=== PATIENT | female | born 1940 | race Caucasian/White ===

== ENCOUNTER 2024-12-24 01:15 | Emergency (ER) | payer MEDICARE, MEDICAID, SELFPAY ==
--- NOTE | 2024-12-24 | ECG_ITS ---
Test Reason : FALL Blood Pressure : */* mmHG Vent. Rate : 65 BPM Atrial Rate : 65 BPM P-R Int : 180 ms QRS Dur : 118 ms QT Int : 460 ms P-R-T Axes : 102 -18 1 degrees QTcB Int : 478 ms Sinus rhythm with Premature supraventricular complexes Left ventricular hypertrophy with QRS widening ( R in aVL , Proctor product ) Possible Lateral infarct , age undetermined T wave abnormality, consider anterior ischemia Abnormal ECG No previous ECGs available Referred By: Generic ED Physician Electronically Signed By: Quinn Bang
--- NOTE | ~2024-12-24 | CT_ITS ---
CLINICAL HISTORY: follow-up on questionable bleed CT head without contrast Comparison: CT/SR - CT HEAD/BRAIN WO IV CON - 12/24/24 06:33 EDT Findings: No acute hemorrhage. Basal ganglia calcifications. No extra-axial fluid collection. No hydrocephalus, mass-effect or herniation. Christianson-white differentiation is maintained. There is patchy hypoattenuation of the periventricular and deep white matter, which is most likely the sequela of moderate chronic small vessel ischemic disease and is similar to the prior study. 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 No acute orbital pathology. Right frontal and temporal scalp hematoma measuring up to 6 mm in thickness. No fracture. The visualized paranasal sinuses are predominantly clear. The mastoid air cells are clear. Impression: No acute intracranial findings. This document has been electronically signed by: Angelique Doyle MD on 12/24/2024 13:19:16
--- NOTE | ~2024-12-24 | CT_ITS ---
CLINICAL HISTORY: fall --- Additional Notes or Special Instructions: 0445 - tried to do CT scans, pt woke up as soon as we moved her on to the CT table. pt moving, sent back to her room. RN and MD notified. jat CT head without contrast Comparison: None Findings: No evidence of acute territorial infarct. There is patchy low density in the periventricular and subcortical white matter. Diffuse volume loss is noted. No hydrocephalus. No intraparenchymal hemorrhage, mass effect, mass lesion or midline shift. Questioned tiny focus of subarachnoid hemorrhage, axial 56-59 along the right posterior frontal region. No calvarial fracture. Right frontal scalp hematoma. Paranasal sinuses and mastoid air cells are clear. Impression: Questioned tiny focus of subarachnoid hemorrhage, axial 56-59 along the right posterior frontal region. This may well be artifactual. Short interval follow-up head CT should be considered. Right frontal scalp hematoma. Otherwise chronic changes. This document has been electronically signed by: Samuel Rocha MD on 12/24/2024 08:19:48
--- NOTE | ~2024-12-24 | CT_ITS ---
CLINICAL HISTORY: fall CT cervical spine without contrast Comparison: None provided Findings: Normal vertebral body alignment. Abnormal destructive process within the posterior elements of C7, axial 178. No acute fractures or dislocations. No acute findings on limited view of the intracranial contents. No cervical fluid collections or masses. No consolidation or effusion at the lung apices. IMPRESSION: No acute fracture or acute malalignment. Destructive somewhat expansile process within the posterior elements of C7. Correlation with any prior imaging is recommended. The appearance is somewhat nonspecific but consideration for prior or chronic osteomyelitis, chronic aneurysmal bone cyst or less likely malignancy This document has been electronically signed by: Samuel Rocha MD on 12/24/2024 08:15:14
[2024-12-24 01:22] VITALS: BP 116/70; BP 129/73; PULSE 62; PULSE 64; RESP 16; TEMP 36.4; O2SAT 96; O2SAT 97; BMI 26.0
--- NOTE | 2024-12-24 01:29 | PC.NURSE ---
goldie from [place] [facility], unwitnessed fall, knee gave out per pt and she tripped, usually fully ambulatory, hit head on floor, hematoma present on R side of forehead. pt denies pain unless touching her head, takes aspirin. full code, per [facility]. pt denies headache, dizziness or lightheadedness.
--- OUTSIDE RECORDS SUMMARY | 2024-12-24 01:42 | XMS_ITS | Encounter Summary ---
Author Organization [facility] Address [address] [place] [address] Care Team Providers Care Oven Tender Name Role Phone Yusuf Fox MD Primary Care Provider Encounter Details Date Type Department Care Team (Late st Contact Info) Description 01/17/2024 Lab Requisition [facility] - Main Lab [address] [facility] [place] [address] Steven Mcelroy MD [address] [place] [address] [address] [facility] [id number] Hypothyroidism, unspecified Social History Tobacco Use Types Packs/Day Years Used Date Smoking Tobacco: Former Cigarettes Q uit: 03/14/1998 Smokeless Tobacco: Never Comments Unknown Sex and Gender Information Value Date Recorded Sex Assigned at Not on file Legal Sex Female 1:54 AM EST Gender Identity Not on file Sexual Orientation Not on file documented as of this encounter Plan of Treatment Not on file documented as of this encounter Procedures Procedure Name Priority Date/Time Associated Diagnosis Comments TRAVEL PHLEBOTOMY FEE Routine 01/18/2024 6:09 AM EST Hypothyroidism, unspecified THYROID STIMULATING HORMONE Routine 01/18/2024 6:09 AM EST Hypothyroidism, unspecified THYROXINE FREE Routine 01/18/2024 6:09 AM EST Hypothyroidism, unspecified documented in this encounter Results * Travel phlebotomy fee (01/18/2024 6:09 AM EST) [facility] TRAVEL PHLEBOTOMY FEE Completed 01/18/2024 11:01 AM EST [facility] Blood Venous blood specimen / Unknown Venipuncture / Unknown 01/18/2024 6:09 AM EST 01/18/2024 10:50 AM EST Steven Mcelroy MD LAB BLOOD ORDERABLES Final Resul t Performing Organization Address City/[facility]/ZIP Co de Phone Number [facility] [address] [place] [address], [place] [phone] * Thyroxine free (01/18/2024 6:09 AM EST) Free T4 1.37 0.70 - 1.80 ng/dL LAB CHEMISTRY METHOD 01/18/2024 11:52 AM EST [facility] Blood Venous blood specimen / Unknown Venipuncture / Unknown 01/18/2024 6:09 AM EST 01/18/2024 10:50 AM EST Steven Mcelroy MD LAB BLOOD ORDERABLES Final Resul t Performing Organization Address [facility]/ZIP Co de Phone Number [facility] [address] [place] [address], [place] [phone] * (ABNORMAL) Thyroid stimulating hormone (01/18/2024 6:09 AM EST) TSH 0.17(L) 0.40 - 4.00 mcIU/mL LAB CHEMISTRY METHOD 01/18/2024 11:53 AM EST [facility] Blood Venous blood specimen / Unknown Venipuncture / Unknown 01/18/2024 6:09 AM EST 01/18/2024 10:50 AM EST us Steven Mcelroy MD LAB BLOOD ORDERABLES Final Resul t Performing Organization Address City/[facility]/ZIP Co de Phone Number [facility] [address] [place] [address], [place] [phone] documented in this encounter Visit Diagnoses Diagnosis Hypothyroidism, unspecified documented in this encounter Care Teams Oven Tender Relationship Specialty Start Date End Date Yusfu Fox MD [address] [place] [address] PCP - General Internal Medicine 10/26/21 documented as of this encounter
--- OUTSIDE RECORDS SUMMARY | 2024-12-24 01:42 | XMS_ITS | Data Portability ---
Author Organization [facility] [employer] [facility], Main Office Address [address] , [address] [place] [address] Care Team Providers Care Vice President Of Manufacturing Name Role Phone GODFREY SHAH - 3RD FLOOR OTHER Assessment No assessment recorded. Plan of Treatment Reminders Order Date Submit Date Provider Last Modified By Organization Details Last Modified Time Details Appointments None record ed. Lab None record ed. Referral None record ed. Procedures None record ed. Surgeries None record ed. Imaging None record ed. Medication Orders None record ed. Patient TargetsNo targets recorded. Patient InstructionsNo instructions recorded. Reason for Referral None Reported. Problems Name Problem SNOMED Code Status Onset Date Resolution Date Notes Provider Name and Address Organization Details Recorded Time Septic shock 73303795 Active 2021 EFRAIN AGUIRRE PA-C [address] , [address], [place], [address], [facility] [employer] 2 12:15:21 Bacterial pneumonia 00841061 Active 2021 EFRAIN AGUIRRE PA-C [address] , [address], [place], [address], [facility] [employer] 2 12:15:29 Primary malignant neoplasm of female breast 85016177 Active 2021 with mets, s/p mastectom y, chemo/XRT and palliativ e XRT EFRAIN AGUIRRE PA-C [address] , [address], [place], [address], [facility] [employer] 2 12:16:33 Acquired hypothyro idism 136011551 Active 2021 s/p thyroidec amee EFRAIN AGUIRRE PA-C [address], [place], [address], [facility] [employer] 2 12:17:05 Chronic kidney disease stage 4 856657425 Active 2021 MATHEW GARCIAC [address], [address], [place], [address], [facility] 2 12:17:20 Vitamin D deficienc y 26009511 Active 2021 EVAN GARCIA-C [address], [address], [place], [address], [facility] 2 12:17:32 Folic acid deficienc y 291579350 Active 2021 EVAN GARCIA-C [address], [address], [place], [address], [facility] 2 12:17:39 Cobalamin deficienc y 087104494 Active 2021 MATHEW GARCIAC [address], [address], [place], [address], [facility] 2 12:18:04 Bilateral pleural effusion 494314782 Active 2021 transudat crystal EVAN GARCIA-C [address], [address], [place], [address], [facility] 2 12:18:28 Urinary incontine nce 185001639 Active 2021 MATHWE GARCIAC [address], [address], [place], [address], [facility] 2 12:18:38 Essential hypertens ion 25476573 Active 2021 EVAN GARCIA-C [address], [address], [place], [address], [facility] 2 12:18:46 Recurrent falls 193306834 Active 2021 EVAN GARCIA-C [address], [address], [place], [address], [facility] 2 12:18:54 Vascular dementia 971761774 Active 2021 EFRAIN AGUIRRE, PA-C [address], [address], [place], [address], [facility] 2 12:19:03 Cardiomyo chase 07454266 Active 2021 ? 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 EFRAIN AGUIRRELAMONTE [address], [address], [place], [address], [facility] 2 12:20:00 Incontine nce of feces 24939263 Active 2021 EFRAIN AGUIRRE LAMONTE [address], [place], [address], [facility] 2 12:20:12 Liver enzymes level above reference range 470138038 Active 2021 EFRAIN LAMONTE AGUIRRE [address], [address], [place], [address], [facility] 2 12:20:45 Chronic anemia 970638870 Active 2021 EFRAIN AGUIRREMATHEWC [address], [place], [address], [facility] 2 12:20:53 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 322236063003 09 Active 2021 EFRAIN LAMONTE AGUIRRE [address], [place], [address], [facility] 2 12:21:21 Edema of left lower leg 476070038 Active 2021 EFRAIN AGUIRREEVAN-C [address], [address], [place], [address], [facility] 2 12:21:33 Dyslipide kenzie 509721660 Active 2021 EFRAINEVAN STOVER-C [address], [place], [address], [facility] 2 12:21:41 Prolonged QT interval 284901085 Active 2021 EFRAIN AGUIRRE PA-C [address] [facility], [facility] [address], [place], [address], [facility] 2 12:22:27 Humoral hypercalc emia of malignanc y 49939922 Active 2021 EFRAIN AGUIRRE PA-C [address] [facility], [facility] [address], [place], [address], [facility] 2 12:22:48 Mixed anxiety and depressiv e disorder 771868462 Active 2023 Milla Rios MD [address] [place] [address], [facility] [address], [place], [address], [facility] 4 19:08:52 Hypothyro idism 87299378 Active 2023 Milla Rios MD [address] [place] [address], [facility] [address], [place], [address], [facility] 4 16:52:20 Problem Notes None recorded. Medical Equipment None Reported. Allergies No known drug allergies Medications Not known to be on any medication Vitals Date Recorded Body height Body mass index (BMI) Body weight Heart rate Respiratory rate Body temperature Oxygen saturation Oxygen saturation in Arterial blood by Pulse oximetry Systolic And Diastolic Provider Name and Address Organization Details Last Updated DateTime 5 160.66 cm 23.4 kg/m2 42836.7 9 g 80 /min 18 /min 97.9 [degF] 96 % 96 % 132/82 mm[Hg] Michelle Nino NP [address] [facility], [facility] [address], [place], [address], [facility] 5 12:37:32 Date Recorded Body height Body mass index (BMI) Body weight Heart rate Respiratory rate Body temperature Oxygen saturation Oxygen saturation in Arterial blood by Pulse oximetry Systolic And Diastolic Provider Name and Address Organization Details Last Updated DateTime 5 160.66 cm 23.4 kg/m2 18219.7 9 g 70 /min 18 /min 97.9 [degF] 96 % 96 % 129/75 mm[Hg] Michelle Nino NP [address] [facility], [facility] [address], [place], [address], [facility] 5 13:58:50 Date Recorded Body height Heart rate Respiratory rate Body temperature Oxygen saturation Oxygen saturation in Arterial blood by Pulse oximetry Systolic And Diastolic Provider Name and Address Organization Details Last Updated DateTime 5 160.66 cm 67 /min 16 /min 97.5 [degF] 96 % 96 % 132/62 mm[Hg] Michelle Nino NP [address] [facility], [address], [place], [address], [facility] 5 17:31:12 Date Recorded Body height Body weight Heart rate Respiratory rate Body temperature Oxygen saturation Oxygen saturation in Arterial blood by Pulse oximetry Systolic And Diastolic Provider Name and Address Organization Details Last Updated DateTime 5 160.66 cm 38748.1 9 g 67 /min 16 /min 97.5 [degF] 96 % 96 % 132/62 mm[Hg] Michelle Nino NP [address] [facility], [facility] [address], [place], [address], [facility] 5 15:58:26 Date Recorded Body height Body weight Body mass index (BMI) Heart rate Respiratory rate Body temperature Oxygen saturation Oxygen saturation in Arterial blood by Pulse oximetry Systolic And Diastolic Provider Name and Address Organization Details Last Updated DateTime 5 160.66 cm 84814.7 9 g 23.4 kg/m2 64 /min 16 /min 97.4 [degF] 96 % 96 % 138/76 mm[Hg] Michelle Nino NP [address] [facility], [facility] [address], [place], [address], [facility] 5 12:32:24 Social History Question Answer Notes LastModified by Organizat ion Details LastModified Time Tobacco Smoking Status Former Smoker EFRAIN AGUIRRE PA-C [address] [facility], [facility] [address], [place], [address], [facility] 02/25/2022 12:23:52 Do You Have An Advance Directive? Yes [email or web address] Information not available 11/03/2023 What Is Your Code Status? Full Code [email or web address] Information not available 01/06/2023 Where Do You Live? [email or web address] Information not available 11/03/2023 Legal Guardian? No [email or web address] Informati on not available 02/25/2022 Do You Have A Medical Power Of Furniture Sprayer? Yes Valid Copy In [facility]; Previously Invoked At [facility] Information not available 02/25/2022 What Was The Date Of Your Most Recent Tobacco Screening? 02/24/2022 [email or web address] Information not available 02/25/2022 Do You Have An Out Of Hospital DNR? Yes [email or web address] Information not available 01/06/2023 What Is Your Relationship Status? [facility] Information not available 11/03/2023 Has Tobacco Cessation Counseling Been Provided? No N/A Information not available 02/25/2022 Sex: Unknown Functional Status Question Answer Note LastModified by Organizat ion Details LastModified Time Do you use any illicit or recreational drugs? No [email or web address] Information not available 02/25/2022 Do you or have you ever used any other forms of tobacco or nicotine? No [email or web address] Information not available 02/25/2022 What is your level of alcohol consumption? None [email or web address] Information not available 02/25/2022 Mental Status None recorded. Family History Relationship Description Onset Age of this Age Resolved Age Notes LastModified by Organization Details LastModified Time Father Malignant neoplasm of pharynx [email or web address] Not available 2021 11:35:11 Mother Pulmonary emphysema [email or web address] Not available 2021 11:35:21 Medical History No medical history recorded. Gynecological HistoryNo gynecological history recorded. Obstetrics History GPAL:G 0 P 0 0 0 0 Immunizations Vaccine Type Date Status Note Provider Nam e and Address Organization Details Recorded Time COVID-19 vaccine, vector-nr, rS-Ad26, PF, 0.5 mL 1 completed EFRAIN AGUIRRE PA-C [address] [place] [address], [address], [place], [address], [facility] [employer] [facility] 02/25/2022 10:57:51 COVID-19, mRNA, LNP-S, PF, 30 mcg/0.3 mL dose, kleber-sucrose 2 completed EFRAIN AGUIRRE PA-C [address] [facility], [address], [place], [address], [facility] 02/25/2022 10:58:12 Tdap 0 completed EFRAIN AGUIRRE PA-C [address] [facility], [address], [place], [address], [facility] 02/25/2022 10:58:28 pneumococcal polysaccharide PPV23 0 completed EFRAIN AGUIRRE PA-C [address] [facility], [address], [place], [address], [facility] 02/25/2022 10:58:41 Influenza, split virus, quadrivalent, preservative 3 completed EFRAIN AGUIRRE PA-C [address] [place] [address], [address], [place], [address], [facility] 05/23/2022 18:26:00 pneumococcal polysaccharide PPV23 3 completed EFRAIN AGUIRRE PA-C [address] [place] [address], [address], [place], [address], [facility] 05/23/2022 18:26:14 Influenza, adjuvanted, quadrivalent, PF 3 completed Jasmin pérez, [facility] [address] 05/02/2023 12:35:31 COVID-19, mRNA, LNP-S, bivalent, PF, 30 mcg/0.3 mL dose 3 [facility] 13:01:24 Past Encounters Encounter ID Performer Location Encounter Start Date Encounter Closed Date Diagnosis/Indication Diagnosis SNOMED-CT Code Diagnosis ICD10 Code Diagnosis IMO Codes Diagnosis Note [id number] EFRAIN AGUIRRE PA-C [address] [address] 02/24/2022 14:33:20 03/11/2022 10:43:04 Septic shock 48481523 R65.21 resolved Hypothermia 744863400 T6 8.XXXS recurrent, possibly related to prior non-compli ance with Levoxylcan also occur with some antipsycho tics-needs to be taken into considerat ion if ever needed due to paranoid delusions and hallucinat ions associated with her vascular dementiaMo nitor temps Bacterial pneumonia 5308 4003 J15.9 Resolved Cardiomyopathy 06398945 I42.9 ?Takotsubo since abrupt and newFollow clinically Consider repeat echo depending on length of stay and goals of care Acquired hypothyroidism 615186863 E03.9 post-thyro idectomyno n-complian ce PTAOne document from [facility] references Levoxyl 100 mcg but rest 88 mcg. Will keep at 88 mcg for Now. Given that it typically takes 4-6 weeks for the TSH to change in response to initiation of or change in dosing of levothyrox ine, would not repeat TSH for at least 1-2 months. Bilateral pleural effusion 412624035 J90 Transudati ves/p thoracente sisrare atypical cells on cytology but unable to completely process due to cell block status Chronic ki dney disease stage 4 217918817 N18.4 recent AKICaution with nephrotoxi c meds Chronic anemia 273736449 D64.9 Multifacto rial-CKD-B 12/Folate def-hx chemoMonit or CBC Essential hypertension 12102837 I10 Monitor BPs and adjust meds prnOff LisnoprilM onitor for edema on Norvasc Primary ma lignant neoplasm of female breast 22133172 C50.919 s/p modified radical mastectomy , chemo/XRT, and palliative XRTClarify med onc/rad onc f/u Recurrent falls 89001742 2 R29.6 PT/OT Urinary incontinence 165 142879 R32 Recently tx for UTI and recent U/A negConside r toileting schedule Humoral hy percalcemia of malignancy 04720304 E83.52 No Vit D or calcium supplement sIV Zometa in the pastMonito r for symptoms Folic acid deficiency 19 6253222 E53.8 Clarify why not on Folate +/- B12 as should at least be on Folic acid Hypoalbumi nemia due to protein calorie malnutrition 1018129009 [address] consult Incontinence of feces 72 601020 R15.9 Consider toileting schedule Liver enzy mes level above reference range 594325634 R74.01 No known symptomsCa ution with hepatotoxi c meds Edema of l eft lower leg 232027840 R60.0 Chronic Dyslipidemia 673684028 E 78.5 Consider d/c statin due to chronic mild transamini tis and since risks outweigh benefits in this patient Cobalamin deficiency 190 513196 E53.8 Borderline Consider repleting Dermal mycosis 05454698 B36.9 antifungal prnmanage incontinen ce Vitamin D deficiency 347 22953 E55.9 Not on Vit D supplement - likely due to hypercalce miaNot sure repleting would confer any benefits in this patient Vascular dementia 878902 004 F01.B2 Review prn Trazodone use after 14 daysConsid er psych consultCau tion with antipsycho tics given hx recurrent hypothermi a although may not be an issue if biochemica lly euthyroid [id number] Steven Mcelroy MD [address] [address] 03/03/2022 10:20:41 03/11/2022 15:00:18 Septic shock 93453756 R65.21 see HPIsepsis and admitted to ICUTreated with zosyn, steroids, and IV levothyrox inequestio n secondary to underlying pneumonia Hypothermia 059813719 T6 8.XXXS post sepsis hypothermi a felt to be idiopathic secondary to age and FTTmonitor need for support Acquired hypothyroidism 986578435 E03.8 continue current dose of synthroidr epeat tsh in 1-2 monthsmoni tor need to adjust Chronic anemia 969611646 D50.8 most likely multifacto rial with FTTmonitor cbciron studies prn Essential hypertension 04227394 I10 currently low normal rangemonit or need to adjust Primary ma lignant neoplasm of female breast 99159392 C50.819 known breast ca with mets to mediastinu mhx mastectomy with chemo/rad txfollowed by [facility] onc Recurrent falls 80027974 2 R29.6 PT OT eval and treatmonit or fall risk Dyslipidemia 643938521 E 78.2 currently simvastati n 20 mg qdcontinue d with PCP to determine need in community Vascular dementia 941686 004 F01.B2 baseline dementia with behaviors appears moderatein voke HCPmonitor for behaviors at facilityps ych to eval prnmonitor need to titrate meds Congestive heart failure 63340519 I50.21 question new finding with EF=30-35% during acute illnessmon itor respirator y and fluid statusmay repeat prn Adult fail ure to thrive syndrome 326652389 R62.7 by report elder services involvedmo nitor need for increased services in community vs need to transition to LTCspeech and dietary to followmoni tor weights [id number] EFRAIN AGUIRRE PA-C [facility] [address] [address] 03/05/2022 12:05:30 03/11/2022 15:31:31 Cough 60161892 R05.9 change ipratropiu m prn to Duoneb q 4 h while awakeadd Albuterol neb q 2 h prn SOB/wheeze Continue Mucinex and Tesselon perlesCont inue O2 prnnon-urg ent CXR to assess status of recent pleural effusions; dx cough-give n recent PNA, will need to interpret any consolidat ions or infiltrate s carefully and correlate clinically -if abx are needed, must be renally dosed due to CKD IVNasal swab for flu/RSVUpd ate labs for Tuesday: CBCD, CMP, TSH Vascular dementia 861115 004 F01.B2 SLUMS not tolerated today [id number] EFRAIN AGUIRRE PA-C [facility] [address] [address] 03/10/2022 11:17:45 03/26/2022 13:58:17 Cough 34899376 R05.9 ANC upCXR pend-will help with clarifying status of recent pleural effusionsC ontinues with cough despite Mucinex and Tesselon perlesLung exam not significan tly changedGiv en recent septic shock due to PNA, have lower threshold for starting abx-NKDA-C rCl 30.1 per [employer] IBW-Hx QT prolongati on-will start Augmentin 875/125 mg po bid x 7 days-benef its of abx outweigh risks of non-treatm ent in this patientPro biotic bid x 10 daysFollow clinically Weight loss 52307435 R63 .4 Biochemica lly euthyroid on examRecent critical illness and now with acute/suba cute illnessPro tein-calor ie malnutriti on and Adult FTT dx prior to admitAdmis ruperto weight may have reflected some degree of volume overload post fluid resuscitat ion during antecedent hospitaliz ation, which has since mobilizedD oes have dx metastatic breast ca and Vascular dementia-w ould anticipate ongoing weight loss-consi paul d/c weightsCon actuarial manager d/c statin and ASA since likely not conferring any benefits at this pointConsi paul empiric PPI Acquired hypothyroidism 658715133 E03.9 Biochemica lly euthyroid on labsNo change in Levoxyl dose at this time [id number] EFRAIN AGUIRRE PA-C [facility] [address] [address] 03/11/2022 08:59:23 03/26/2022 14:48:04 Bacterial pneumonia 52782288 J15.9 clinically improvedfi jaciel abx as plannedsym ptomatic carefollow clinically Pleural effusion 7891966 8 J90 minimal on CXRno indication for interventi on at this timef/u prn [id number] EFRAIN AGUIRRE PA-C [facility] [address] [address] 03/12/2022 10:51:23 03/26/2022 15:38:00 Bacterial pneumonia 23713866 J15.9 Overall better last few days although using T0ekqkmu abx as plannedsym ptomatic carefollow clinically Exposure t o influenzavirus 929214577 Z20.828 CrCl 30.1 per [employer] IBW-start Tamiflu 30 mg po daily x 5 daysFollow clinically Precaution s per facility protocol [id number] EFRAIN AGUIRRE PA-C [facility] [address] [address] 03/16/2022 11:10:22 03/26/2022 16:08:51 Acute COVID-19 5033873332 U07.1 CrCl 30.1 per [employer] IBW-start Paxlovid 150-100 po bid x 5 days-hold Zocor x 7 days-ok to continue Levoxyl without monitoring TFTs since Paxlovid short course-hol d Norvasc x 7 days since already on lowest dose and cannot reduce by 50%-ok to continue Trazodone despite increased risk of efficacy since short course of Paxlovid Bacterial pneumonia 5308 4003 J15.9 Looks better and lung sounds better but still O2-depende ntfinish abx as plannedsym ptomatic carefollow clinically Wean O2 Exposure t o influenzavirus 820529023 Z20.828 TamifluFol low clinically Precaution s per facility protocol [id number] EFRAIN AGUIRRE PA-C [facility] [address] [address] 03/26/2022 13:39:08 04/08/2022 16:12:24 Weight loss 65441917 R63.4 Had critical care hospitaliz ation prior to admit then tx acute bacterial PNA here followed by Tamiflu prophylaxi s and then acute COVID.Bioc hemically euthyroid on recent labsConsid er d/c statin as risks likely outweigh benefits in this patientCon actuarial manager d/c Norvasc since BPs low end of normalKeep ASA for now due to cerebrovas cular diseaseCon actuarial manager checking stool guaiacs for completene ssConsider empiric PPIContinu e EnsureMoni tor weightsRD also following Acute COVID-19 840002116 8 U07.1 s/p Paxlovidcl inically resolvedf/ u prn Bacterial pneumonia 5308 4003 J15.9 Off supplement al P7nnpyzwun ly resolvedf/ u prn [id number] EFRAIN AGUIRRE PA-C [facility] [address] [address] 04/05/2022 10:43:54 04/26/2022 16:21:53 Chronic rhinitis 65353006 J31.0 Zyrtec 5 mg po qhs and q 6 h prn runny nose; prn dose not to be given within 6 hours of scheduled dosef/u prn Cough 96291165 R05.9 resolvedd/ c Mucinex and Tesselon perlesf/u prn [id number] Zoraida Quiles MD [facility] [address] [address] 04/16/2022 07:45:29 04/20/2022 10:44:30 Asthenia 07793747 R53.1 PT/OT/SLPw ill monitor and support as needed Vascular dementia 996880 004 F01.B2 will monitor and support as neededexpe ct declinesee meds for mixed anxiety disorder Mixed anxi ety and depressive disorder 648348581 F41.8 trazodone 25 mg bidwill monitor Primary ma lignant neoplasm of female breast 52027662 C50.819 anastrazol e 1 mg dailyfu oncology Essential hypertension 67526913 I10 no meds at this timewill continue to monitor Acquired hypothyroidism 772538438 E03.8 [id number] EFRAIN AGUIRRE PA-C [facility] [address] [address] 05/07/2022 16:03:30 05/27/2022 16:12:32 Primary malignant neoplasm of female breast 96194902 C50.819 CA 27-29 results reassuring Await results of CTs and bone scanf/u heme/onc [id number] EFRAIN AGUIRRE PA-C [facility] [address] [address] 05/27/2022 12:39:04 06/15/2022 12:48:45 Weight gain 3500181 R63.5 lost weight, had COVID, weight trending upNo evidence of volume overload on exammonito r weightsRD also following Primary ma lignant neoplasm of female breast 30732180 C50.819 Diagnostic s in processhem e/onc following [id number] Zoraida Quiles MD [facility] [address] [address] 07/16/2022 08:01:00 07/21/2022 10:22:18 Vascular dementia 344270667 F01.B2 will monitor and support as neededexpe ct declinesee meds for mixed anxiety disorder Mixed anxi ety and depressive disorder 396629284 F41.8 trazodone 25 mg bidwill monitor Essential hypertension 93890097 I10 no meds at this timewill continue to monitor Primary ma lignant neoplasm of female breast 97987603 C50.819 anastrazol e 1 mg dailyfu oncology Cobalamin deficiency 190 353642 E53.8 start B12 1000 mcg weekly x 8 weeks, then monthlywil l monitor Hypothyroidism 43487524 E03.8 levothyrox ine 88 mcg dailywill monitor [id number] [place] [facility] [address] [address] 09/07/2022 10:13:08 09/09/2022 10:05:49 Vascular dementia 272800255 F01.B2 supportive careexpect declinetra zodone 25 mg bidmonitor mood Mixed anxi ety and depressive disorder 433787095 F41.8 trazodone 25 mg bidmonitor moodHDBH following Essential hypertension 53019723 I10 no treatmentm onitor bp and add med if becomes elevated Primary ma lignant neoplasm of female breast 28217288 C50.819 anastrazol e 1 mg qdf/u oncology Cobalamin deficiency 190 391913 E53.8 B12 1000 mcg monthlymon itor level prn Hypothyroidism 18590157 E03.8 levothyrox ine 88 mcg qdTSH 3.2 in Feb 2022monito r annually in [id number] Zoraida Quiles MD [facility] [address] [address] 11/17/2022 07:17:33 11/19/2022 11:28:08 Vascular dementia 959804521 F01.B3 will monitor and support as neededexpe ct declinesee meds for mixed anxiety disorder Mixed anxi ety and depressive disorder 713783737 F41.8 trazodone 25 mg bidwill monitor Essential hypertension 50394997 I10 no meds at this timewill continue to monitor Cobalamin deficiency 190 225320 E53.8 B12 1000 mcg monthlywil l monitor Primary ma lignant neoplasm of female breast 47135427 C50.819 anastrazol e 1 mg dailyfu oncology Hypothyroidism 35982354 E03.8 levothyrox ine 88 mcg dailywill monitor [id number] SUREKHA HERNANDEZ NP [facility] [address] [address] 01/06/2023 12:18:27 01/10/2023 10:54:54 Vascular dementia 295295393 F01.B3 On trazodone 25 mg bidSLUMS completed today, score 11/10, C/W dementiaHC P invokedMon itor mood, behaviorsE xpect continued declinePsy ch eval prn Mixed anxi ety and depressive disorder 460396947 F41.8 Continue trazodone 25 mg bidmonitor mood, behaviorsP sych eval prn Essential hypertension 13134089 I10 not on meds at this timeNo recent VS (last BP in June) - will order q wk x 4, then q month. Cobalamin deficiency 190 279820 E53.8 Continue B12 1000 mcg monthlyChe cking labs as above Primary ma lignant neoplasm of female breast 87518198 C50.819 With mets to mediastinu mContinue anastrazol e 1 mg dailyfu oncology as scehd. Hypothyroidism 09745831 E03.8 Currently on levothyrox ine 88 mcg dailyLast TSH 2Che ck TSH, FT4, lisa. in light of weight gain. Cardiomyopathy 40019247 I42.9 Continue ASA 81 mg dailyMonit or CP status for change Chronic anemia 080640592 D50.8 Unsure of baseline.N ormocytic. B 12 borderline low - on B 12 IM monthlyNo s/s active bleed.Plan -check CBC, B 12, folic acid, and Fe panelconti nue IM B12 q month Chronic ki dney disease stage 4 235410270 N18.4 Monitor labs, avoid nephrotoxi csCMP x 1 Dyslipidemia 018561547 E 78.2 not on meds at this time. Recurrent falls 51494157 2 R29.6 Moderate fall risk per [facility] OT eval and tx. prn Weight gain 0561682 R63. 5 Initially has a loss, now with a gainDoes not appear fluid overloaded Up to 155 lbs if scale correct.Pl an -D/C EnsureUpda te DieticianW eight q week for Tre shields TSH level as well [id number] Michelle Nino NP [facility] [address] [address] 01/10/2023 15:03:56 01/18/2023 12:51:17 Hypothyroidism 53518234 E03.8 Currently on levothyrox ine 88 mcg dailyprior TSH 02/2022 3.281/ very high TSH 76.4610/30 start:MAY documentat ion shows pt getting medwill leave note on MAY to ensure pt takes pills in front of nursereche ck level in 4 weeks and reeval if heading in right direction although optimal tsh in 8 weeks idealif improving recheck level in 4 weeks if not improved consider increasing dose Vascular dementia 195528 004 F01.B3 On trazodone 25 mg bidSLUMS completed today, score 11/10, C/W dementiaHC P invokedMon itor mood, behaviorsE xpect continued declinePsy ch eval prn [id number] [facility] [address] [place] [address] 02/02/2023 11:22:34 02/09/2023 08:46:48 Hypothyroidism 83533421 E03.8 Currently on levothyrox ine 88 mcg dailyprior TSH 02/2022 3.281 very high TSH 76.4610 start:MAY documentat ion shows pt getting medwill leave note on MAY to ensure pt takes pills in front of nursereche ck level in 4 weeks and reeval if heading in right direction although optimal tsh in 8 weeks idealif improving recheck level in 4 weeks 02/10 if not improved consider increasing dose Vascular dementia 167314 004 F01.B3 On trazodone 25 mg bidSLUMS completed score 11/10, C/W dementiaHC P invokedMon itor mood, behaviorsE xpect continued declinePsy ch eval prn Mixed anxi ety and depressive disorder 909648030 F41.8 Continue trazodone 25 mg bidpsych saw pt on 01/13 and rec trazodone 25 mg po qd prn for anxiety and agitation1 04/04 will add ua with c & s to rule out infection with behaviorsm onitor mood, behaviorsP sych eval prn Recurrent falls 99296022 2 R29.6 Moderate fall risk per [facility] OT eval and tx. prn [id number] Michelle Nino NP [facility] [address] [place] [address] 02/04/2023 11:47:27 02/09/2023 10:00:04 Mixed anxiety and depressive disorder 412776008 F41.8 Continue trazodone 25 mg bidpsych saw pt on 01/13 and rec trazodone 25 mg po qd prn for anxiety and agitation1 04/04 ua with c & s ordered rule out infection with behaviors1 04/06 ua positive see belowmonit or mood, behaviorsP sych eval prn Vascular dementia 953212 004 F01.B3 On trazodone 25 mg bidSLUMS completed score 11/10, C/W dementiaHC P invokedMon itor mood, behaviorsE xpect continued declinePsy ch eval prn Acute cystitis 90931785 N30.01 02/04 pt with positive uti, increased agitation without other kwbgjdzo31 /24 startnitro furantoin 100 mg er po bid x 5 daysstart probiotic 1 tab po bid x 7 daysawait culture for sensitivit iesmonitor for resolution of symptoms [id number] Michelle [facility] [address] [place] [address] 02/07/2023 12:20:55 02/09/2023 10:39:39 Acute cystitis 95500427 N30.01 02/04 pt with positive uti, increased agitation without other bwzyeoeq38 /24 startnitro furantoin 100 mg er po bid x 5 days until 02/09start probiotic 1 tab po bid x 7 days02/06 urine culture showing ecoli >100,000 susceptibl e to nitrofuran toin <16.Will continue with therapy and consider consider augmentin if not resolved symptomati sommer.kavin tor for resolution of symptoms Mixed anxi ety and depressive disorder 512306120 F41.8 Continue trazodone 25 mg bidpsych saw pt on 01/13 and rec trazodone 25 mg po qd prn for anxiety and agitation1 04/04 ua with c & s ordered rule out infection with behaviors1 04/06 ua positive see abovemonit or mood, behaviorsP sych eval prn Vascular dementia 636723 004 F01.B3 On trazodone 25 mg bidSLUMS completed score 11/10, C/W dementiaHC P invokedMon itor mood, behaviorsE xpect continued declinePsy ch eval prn Hypothyroidism 22777054 E03.8 s/p thyroidect omyCurrent ly on levothyrox ine 88 mcg dailyprior TSH 02/2022 3.281 very high TSH 76.4610/30 started:MIAN Britton documentat ion shows pt getting med and added note on MAY to ensure pt takes pills in front of nurse02/07 TSH is noted to be 28. 64 and t4 is 1.02 on 02/07/23 improving, will keep on current plan and recheck level in 4 weeks which should be a true level [id number] Michelle Nino NP [address] [address] 03/30/2023 16:44:32 04/01/2023 15:11:43 Acute cystitis 67456635 N30.01 resolved with ecoli >100,000 susceptibl e to nitrofuran toin <16 finished therapy 02/11/23.mo nitor for recurrent symptoms Mixed anxi ety and depressive disorder 491486146 F41.8 Continue trazodone 25 mg bidmonitor mood, behaviorsP sych eval prn Vascular dementia 460608 004 F01.B3 On trazodone 25 mg bidHCP invokedMon itor mood, behaviorsE xpect continued declinePsy ch eval prn Hypothyroidism 06278682 E03.8 s/p thyroidect omyon levothyrox ine 88 mcg dailyprior TSH 02/2022 3.2810 very high TSH 76.4610/30 started:MINA Britton documentat ion shows pt getting med and added note on MAY to ensure pt takes pills in front of nurse02/07 TSH is noted to be 28. 64 and t4 is 1.02 on 02/07/23 improving, will keep on current plan and recheck level in 4 weeks which should be a true level03/08level improved to tsh 5.391/17/2 4 increase levothyrox ine to 100 mcg daily as there is room for improvment and recheck tsh in 8 week Recurrent falls 33292109 2 R29.6 Moderate fall risk per [facility] OT eval and tx. prn Chronic anemia 199605911 D50.8 Unsure of baseline.N ormocytic. B 12 borderline low - on B 12 IM monthlyNo s/s active bleed.Plan -check CBC, B 12, folic acid, and Fe panel prn and yearlycont inue IM B12 q month Cobalamin deficiency 190 127891 E53.8 Continue B12 1000 mcg monthlyChe cking labs as above Primary ma lignant neoplasm of female breast 73430462 C50.819 With mets to mediastinu mContinue anastrazol e 1 mg dailyfu oncology as schd. Chronic ki dney disease stage 4 550592784 N18.4 Monitor labs, avoid nephrotoxi cs Cardiomyopathy 08809956 I42.9 Continue ASA 81 mg dailyMonit or CP status for change Essential hypertension 47554775 I10 not on meds at this timebp stable 120s/ 60s Dyslipidemia 363949462 E 78.2 not on meds at this time. [id number] Michelle Nino NP [facility] of [address] [address] 05/05/2023 11:44:46 05/10/2023 13:11:13 Mixed anxiety and depressive disorder 679527950 F41.8 Continuetr azodone 25 mg bidmonitor mood and behaviorsP sych eval prn Vascular dementia 578479 004 F01.B3 conttrazod one 25 mg bidHCP invokedMon itor mood, behaviorsE xpect continued declinePsy ch eval prn Hypothyroidism 85898656 E03.8 s/p thyroidect omycontens ure pt takes pills in front of nurselevot hyroxine to 100 mcg dailyreche ck tsh in 5 weeks Chronic anemia 987568142 D50.8 Normocytic .B 12 IM monthlyNo s/s active bleed.chec k CBC, B 12, folic acid, and Fe panel prn and yearly Cobalamin deficiency 190 226875 E53.8 ContinueB1 2 1000 mcg monthlyChe cking labs as above Primary ma lignant neoplasm of female breast 90929540 C50.819 With mets to mediastinu mContinuea nastrazole 1 mg dailyfu oncology as schd. Chronic ki dney disease stage 4 930781865 N18.4 Monitor labsavoid nephrotoxi cs Cardiomyopathy 36653502 I42.9 ContinueAS A 81 mg dailyMonit or Essential hypertension 73312039 I10 not on meds at this timebp stable [id number] Michelle Nino NP [facility] of [address] [address] 07/04/2023 11:45:31 07/06/2023 11:10:06 Vascular dementia 647465337 F01.B3 conttrazod one 25 mg bidHCP invokedMon itor mood, behaviorsE xpect continued declinePsy ch eval prn Primary ma lignant neoplasm of female breast 21107697 C50.819 With mets to mediastinu mContinuea nastrazole 1 mg dailyfu oncology as schd. , appt today Respirator y tract congestion and cough 938065558 R05.9 cough and congestion and fatigue x 3-4 days, smell of mal odorous urine in room on exam07/03 art cmp and cbc and resp panel in amrobituss in 10 ml po q 4hours prn coughzofra n 4 mg po q 6 hours prn nauseaurin alysis with c & sencourage po fluidsmoni tor [id number] Michelle Nino NP [address] [address] 07/08/2023 11:46:37 07/13/2023 12:34:57 Respiratory tract congestion and cough 814334908 R05.9 resolvingc ough and congestion and fatigue x 3-4 dayscmp and cbc and resp panel wnl on 07/04robitu ssin 10 ml po q 4hours prn coughzofra n 4 mg po q 6 hours prn nauseaurin alysis with c & s, negative for infectione ncourage po fluidsmoni tor Vascular dementia 368987 004 F01.B3 conttrazod one 25 mg bidHCP invokedMon itor mood, behaviorsE xpect continued declinePsy ch eval prn Primary ma lignant neoplasm of female breast 93040044 C50.819 With mets to femur noted in 2019, with primary breast cancer tumor to mediastinu m, ER positive, FL positive HER2 neg. Received palliative radiation to right hip and femur completed on 09/13/19 with chemo and continued on anastrozol e on fu onocology with 05/20/23 ct chest/abd/ pelvis with contrast showed diffuse bone mets with stable mets disease, except lytic lesion involving t 4 vertebral body and rec for radiation treatments 07/05, 07/06, 07/07, 07/10 07/07 Will rec pt use a mask in the community Continuean astrazole 1 mg dailyfu oncology as schd [id number] Milla Rios MD [address] [address] 08/01/2023 18:10:08 09/07/2023 15:31:03 Vascular dementia 829151271 F01.B3 Continues at baselineCo ntinue trazadone 25 mg BIDContinu e supportive care, expect decline.HC P invokedMon itor mood and behaviors. Psych follows Primary ma lignant neoplasm of female breast 09111385 C50.819 Last imaging was stable.Com pleted radiation on 07/10Has f/u scans scheduled for August.Crystal nue anastrazol e 1 mg qdF/U with oncology as planned.Pt continues to be full code. Mixed anxi ety and depressive disorder 010139391 F41.8 As above Hypothyroidism 77137957 E89.0 s/p thyroidect omyLast TSH was sl. high in 02/2023, no FT4 done at that time.Crystal nue levothyrox ine 100 mcg qdTSH had been ordered for 06/2023, but not done.Will order for August with FT4. Chronic anemia 870754687 D50.8 Normocytic .Continue B 12 1000 mcg IM monthlyMon itor labs Chronic ki dney disease stage 4 005227934 N18.4 At baseline.C ontinue to avoid nephrotoxi c meds as able.Monit or labs.Renal consult prn. Essential hypertension 71433725 I10 In good control on no meds.Monit or BP and labs [id number] Michelle Nino NP [address] [address] 09/05/2023 13:45:45 09/13/2023 08:52:11 Vascular dementia 916450829 F01.B3 Continues at baselineCo ntinue trazadone 25 mg BIDContinu e supportive care, expect decline.HC P invokedMon itor mood and behaviors. Psych follows Primary ma lignant neoplasm of female breast 92115124 C50.819 Last imaging was stable.Com pleted radiation on 07/10Has f/u scans scheduled for August.Crystal nue anastrazol e 1 mg qdF/U with oncology as planned.Pt continues to be full code. Acute COVID-19 549787849 8 U07.1 covid 19 positive on 09/03medica tion options reviewed with pharmacist and agree with option below. egfr 47paxlovid 1/2 dose 150 mg po/100 mg po bid x 5 daysencour age po fluidsrobi tussin 10 mg po q 4hours prn x 21 daysisolat ion per facilitymo nitor for sequelae [id number] Michelle Nino NP [facility] [address] [address] 09/07/2023 11:51:13 09/13/2023 09:48:01 Acute COVID-19 0808309307 U07.1 covid 19 positive on 09/03medica tion options reviewed with pharmacist and agree with option below. egfr 47on 09/04 she started on paxlovid 1/2 dose 150 mg po/100 mg po bid x 5 daysencour age po fluidsrobi tussin 10 mg po q 4hours prn x 21 daysisolat ion per facilitymo nitor for sequelaewi ll cont with plan above Vascular dementia 479121 004 F01.B3 Continues at baselineCo ntinuetraz adone 25 mg BIDContinu e supportive care, expect decline.HC P invokedMon itor mood and behaviors. Psych follows [id number] Michelle Nino NP [facility] of [address] [address] 09/23/2023 16:34:37 09/29/2023 15:08:08 Acute COVID-19 2587994787 U07.1 covid 19 positive on 09/03 now resolvedon 09/04 she started on paxlovid 1/2 dose 150 mg po/100 mg po bid x 5 daysmonito r for sequelae Vascular dementia 394714 004 F01.B3 Continues at baselineCo ntinuetraz adone 25 mg BIDContinu e supportive care, expect decline.HC P invokedMon itor mood and behaviors. Psych follows Primary ma lignant neoplasm of female breast 70212761 C50.819 Last imaging was stable with some concern for overall progressio n.Complete d radiation on s f/u scans scheduled for August, will request noteContin ue anastrazol e 1 mg qd? per onc/rad note if should be on Fluvesrant instead. -nsg to reach out to oncology(n ot at [facility]) for notes/plan F/U with oncology as planned.Pt continues to be full code. Mixed anxi ety and depressive disorder 499910565 F41.8 As above Hypothyroidism 37097444 E89.0 s/p thyroidect omyLast TSH was sl. high in 02/2023, no FT4 done at that time.TSH ordered for 06/2023, but not done., ordered for August with FT4, but not donewill reorder TSH free t 4 at next drawContin uelevothyr oxine 100 mcg qdmonitor Chronic anemia 201351055 D50.8 Normocytic .Continue B 12 1000 mcg IM monthlyMon itor labs Chronic ki dney disease stage 4 022165736 N18.4 At baseline.C ontinue to avoid nephrotoxi c meds as able.Monit or labs.Renal consult prn. Essential hypertension 71687348 I10 In good control on no meds.Monit or BP and labs [id number] Michelle Nino NP [address] [address] 09/26/2023 16:10:36 09/29/2023 15:29:54 Primary malignant neoplasm of female breast 64843187 C50.819 Last imaging was stable with some concern for overall progressio n.Complete d radiation on 07/10Ha f/u scans scheduled for August, will request notedc anastrazol e 1 mg qd09/22 ? per onc/rad note if should be on Fluvesrant instead. -nsg to reach out to oncology(n ot at [facility]) for notes/plan 09/25 oncology called by [employer] and confirmed she has been receiving Fluvesrant and to dc anastrozol e. Oncology nurse will notify that she was on both.F/U with oncology as planned 09/28 at 3:30Pt continues to be full code. Hypothyroidism 84978005 E89.0 s/p thyroidect omyLast TSH was sl. high in 02/2023, no FT4 done at that time.TSH ordered for 06/2023, but not done., ordered for August with FT4, but not done09/25 TSH free t 4 at next drawContin uelevothyr oxine 100 mcg qdmonitor Chronic anemia 031789395 D50.8 Normocytic .Continue B 12 1000 mcg IM monthlyMon itor labs [id number] SUREKHA HERNANDEZ NP [facility] [address] [address] 09/28/2023 09:49:15 09/29/2023 16:12:23 Hypothyroidism 36297183 E03.8 Prior levels variable:T SH 02/2022 = 3.28TSH 12/2022 = 76.46Levot hyroxine dose increased from 88 mcg to 100 mcg dailyTSH 02/2023 = 5.39TSH 09/27/23 = 122.54, FT4 0.53 MAR reviewed, confirms 100 mcg dose and med compliance .Clinicall y stable/asy mptomatic. Plan -increase levothyrox ine to 125 mcg qdTSH, FT4 on 10/24 and 11/21 to trend levels due to past hx. of ups and downs [id number] Michelle Nino NP [facility] of [address] [address] 10/27/2023 14:50:06 10/31/2023 16:03:39 Hypothyroidism 38745004 E03.8 Prior levels variable:T SH 02/2022 = 3.28TSH 12/2022 = 76.46Levot hyroxine dose increased from 88 mcg to 100 mcg dailyTSH 02/2023 = 5.39TSH 09/27/23 = 122.54, FT4 0.53dose increased to 125 mcg dailyTSH 10/25/23= 30. 47next TSH on 11/21 to eval if adjustment is neededClin ically stable/asy mptomatic. [id number] Milla Rios MD [facility] [address] [address] 11/03/2023 19:36:27 12/19/2023 09:55:27 Hypothyroidism 49878527 E03.8 TSH improving on increased dose of levothyrox ine. FT4 remains in low nl range.Cont inue levothyrox ine 125 mcg qd.Recheck TSH and FT4 on 11/21 as planned. Primary ma lignant neoplasm of female breast 79935866 C50.819 Being txed palliative ly, but remains full code.F/U with oncology as plannedDis cuss code status with HCP when able. Chronic anemia 006194841 D50.8 StableCont inue B 12 1000 mcg IM monthlyMon itor labs Vascular dementia 596496 004 F01.B3 Remains at baselineCo ntinue trazadone 25 mg BIDContinu e supportive care, expect decline.HC P invokedMon itor mood and behaviors. Psych follows with no recent changes. Mixed anxi ety and depressive disorder 668448296 F41.8 As above Chronic ki dney disease stage 4 377562694 N18.4 Continues at baseline.C ontinue to avoid nephrotoxi c meds as able.Monit or labs.Renal consult prn. Essential hypertension 33852954 I10 Remains in good control on no meds.Monit or BP and labs History of SARS-CoV-2 29 90442329 49854931 Z86.16 Tested + 09/04/23Now recovered. Monitor for sequelae. [id number] Michelle Nino NP [facility] of [address] [address] 11/23/2023 15:01:54 11/24/2023 13:22:45 Hypothyroidism 71236021 E03.8 Prior levels variable:T SH 02/2022 = 3.28TSH 12/2022 = 76.46Levot hyroxine dose increased from 88 mcg to 100 mcg dailyTSH 02/2023 = 5.39TSH 09/27/23 = 122.54, FT4 0.53dose increased to 125 mcg dailyTSH 10/25/23= 30. 479/01/04 is 70.87 and free t4 is 0.74. Nursing documentin g she is receiving medication .Will re request med be given at 0800 as she is more compliant at this time.reche ck level in 8 weeksClini sommer stable/asy mptomatic. [id number] Michelle Nino NP [facility] of [address] [address] 02/27/2024 13:19:08 02/28/2024 10:28:34 Hypothyroidism 63144754 E03.8 Prior levels variable:T SH 02/2022 = 3.28TSH 12/2022 = 76.46Levot hyroxine dose increased from 88 mcg to 100 mcg dailyTSH 02/2023 = 5.39TSH 09/27/23 = 122.54, FT4 0.53dose increased to 125 mcg dailyTSH 10/25/23= 30. 479/01/04 is 70.87 and free t4 is 0.74. increase to 150 mcg01/18/24 tsh 0.17, free 74 1.37 Nursing documentin g she is receiving medication .Will re request med be given at 0800 as she is more compliant at this time.reche ck level in 8 weeksClini sommer stable/asy mptomatic. Vascular dementia 997101 004 F01.B3 Remains at baselineCo ntinuetraz adone 25 mg BIDContinu e supportive care, expect decline.HC P invokedMon itor mood and behaviors. Psych follows with no recent changes. Primary ma lignant neoplasm of female breast 24845263 C50.819 Being txed palliative ly, but remains full code.F/U with oncology as plannedDis cuss code status with HCP when able. Chronic anemia 364387128 D50.8 StableCont inue B 12 1000 mcg IM monthlyMon itor labs Mixed anxi ety and depressive disorder 975427872 F41.8 As above Chronic ki dney disease stage 4 550965205 N18.4 Continues at baseline.C ontinue to avoid nephrotoxi c meds as able.Monit or labs.Renal consult prn. Essential hypertension 81433269 I10 Remains in good control on no meds.Monit or BP and labs Unintentio nal weight loss 548963576 R63.4 sl weight loss of 9 lbs over last few months, stable past few weeksdieti mendoza to consult and followmoni tor for further loss and for need to start increased supplement s and/or medsweight weekly [id number] Michelle [facility] [address] [address] 04/04/2024 09:21:04 04/05/2024 11:14:44 Hypothyroidism 78084834 E03.8 Has known goiter to neck.Prior levels variable and trended.TS H 02/2022 = 3.28TSH 12/2022 = 76.46 Levothyrox ine dose increased from 88 mcg to 100 mcg dailyTSH 02/2023 = 5.39TSH 09/27/23 = 122.54, FT4 0.53 dose increased to 125 mcg dailyTSH 10/25/23= 30. 479/01/04 is 70.87 and free t4 is 0.74. increase to 150 mcg01/18/24 tsh 0.17, free 74 1.37Will re request med be given at 0800 as she is more compliant at this time.reche ck level q 6 monthsClin ically stable/asy mptomatic. Vascular dementia 672180 004 F01.B3 Remains at baselineCo ntinuetraz adone 25 mg BIDContinu e supportive care, expect decline.HC P invokedMon itor mood and behaviors. Psych follows with no recent changes. Primary ma lignant neoplasm of female breast 58139923 C50.819 Being txed palliative ly, but remains full code.recei daniele injections for her breast CA. last notable on 02/03/24Di scuss code status with HCP when able.F/U with oncology as planned [facility]. Chronic anemia 996863665 D50.8 StableCont inue B 12 1000 mcg IM monthlyMon itor labs Mixed anxi ety and depressive disorder 656517864 F41.8 As above Chronic ki dney disease stage 4 984587564 N18.4 Continues at baseline.C ontinue to avoid nephrotoxi c meds as able.Monit or labs.Renal consult prn. Essential hypertension 70897707 I10 Remains in good control on no meds.Monit or BP and labs Unintentio nal weight loss 885484239 R63.4 weight stable over last few months, has lost 15 lbs this yearpossib ly related to ca diagnosis and follows with Leisa donaldson to consult and followmoni tor for further loss and for need to start increased supplement s and/or medsweight weekly Dyslipidemia 621948654 E 78.2 not on meds at this time. Cobalamin deficiency 190 482266 E53.8 ContinueB1 2 1000 mcg monthlylab s prn and yearly Chronic rhinitis 8647356 6 J31.0 pt with chronic rhinitis and nsg reports increased rhinitis lately and coughcovid negative 04/03/24con tzyrtec qd and q 6 hours prn1/22 add robitussin po q 4 hours prn cough04/04 add flonase 1 spray each nare qd x 30 days and reevalmoni tor [id number] Michelle Nino NP [address] [address] 04/27/2024 10:03:13 04/30/2024 10:29:24 Chronic rhinitis 90369042 J31.0 pt with chronic rhinitis resolving with flonase latelycovi d negative 04/03/24con tzyrtec qd and q 6 hours prncontrob itussin po q 4 hours prn coughflona se 1 spray each nare qd x 30 days to end on 05/05monito r Vascular dementia 462052 004 F01.B3 Remains at baselineCo ntinuetraz adone 25 mg BIDContinu e supportive care, expect decline.HC P invokedMon itor mood and behaviors. Psych follows with no recent changes. Hypothyroidism 00777569 E03.8 Has known goiter to neck.Prior levels variable and trended.TS H 02/2022 = 3.28TSH 12/2022 = 76.46 Levothyrox ine dose increased from 88 mcg to 100 mcg dailyTSH 02/2023 = 5.39TSH 09/27/23 = 122.54, FT4 0.53 dose increased to 125 mcg dailyTSH 10/25/23= 30. 479/01/04 is 70.87 and free t4 is 0.74. increase to 150 mcg01/18/24 tsh 0.17, free 74 1.37Will re request med be given at 0800 as she is more compliant at this time.reche ck level q 6 monthsClin ically stable/asy mptomatic. Primary ma lignant neoplasm of female breast 90566507 C50.819 Being txed palliative ly, but remains full code.recei daniele injections for her breast CA. last notable on 02/03/24Di scuss code status with HCP when able.F/U with oncology as planned [facility]. Chronic anemia 769310773 D50.8 StableCont inue B 12 1000 mcg IM monthlyMon itor labs Mixed anxi ety and depressive disorder 703691575 F41.8 As above Chronic ki dney disease stage 4 312029145 N18.4 Continues at baseline.C ontinue to avoid nephrotoxi c meds as able.Monit or labs.Renal consult prn. Cobalamin deficiency 190 378974 E53.8 ContinueB1 2 1000 mcg monthlylab s prn and yearly [id number] Michelle Nino NP [facility] of [address] [address] 05/25/2024 15:23:29 05/28/2024 13:55:26 Vascular dementia 466733975 F01.B3 Remains at baselineCo ntinuetraz adone 25 mg BIDContinu e supportive care, expect decline.HC P invokedMon itor mood and behaviors. Psych follows with no recent changes. Primary ma lignant neoplasm of female breast 38609702 C50.819 Being txed palliative ly, but remains full code.recei daniele injections for her breast CA.had ct scan today and onc will reach out with results and if need to switch to po pills instead based off resultsawa iting progress note, in computer last note 04/06/24 from oncDiscuss code status with HCP when able, daughter Anamika/U with oncology as planned [facility]. Chronic ki dney disease stage 4 404722263 N18.4 Continues at baseline.C ontinue to avoid nephrotoxi c meds as able.Monit or labs.Renal consult prn.possib ly had ct with contrast today, will monitor hydrationl abs as needed, often refuses, will order bmp and cbc to fu on ct with contrast and ckdpush fluids [id number] Steven Mcelroy MD [facility] [address] [address] 05/26/2024 13:07:30 05/28/2024 14:13:31 Primary malignant neoplasm of female breast [id number] C50.819 [facility] need to readdress advanced directives currently full code Vascular dementia [id number] 004 F01.B3 baseline moderate dementiaco ntinue supportive caremonito r for behaviorsp sych eval prn [id number] Michelle Nino NP [facility] [address] [address] 06/21/2024 12:33:39 06/25/2024 13:02:52 Vascular dementia [id number] F01.B3 Remains at baselineCo ntinuetraz adone 25 mg BIDContinu e supportive care, expect decline.HC P invokedMon itor mood and behaviors. Psych follows with no recent changes. Chronic rhinitis [id number] 6 J31.0 resolvingp t with chronic rhinitis resolving with flonase latelycont zyrtec qd and q 6 hours prnrobitus sin po q 4 hours prn coughflona se 1 spray each nare qd x 30 days to end on 05/05monito r Hypothyroidism [id number] E03.8 Has known goiter to neck.Prior levels variable and trended.TS H 02/2022 = 3.28TSH 12/2022 = 76.46 Levothyrox ine dose increased from 88 mcg to 100 mcg dailyTSH 02/2023 = 5.39TSH 09/27/23 = 122.54, FT4 0.53 dose increased to 125 mcg dailyTSH 10/25/23= 30. 479/01/04 is 70.87 and free t4 is 0.74. increase to 150 mcg01/18/24 tsh 0.17, free 74 1.37reques t med be given at 0800 as she is more compliant at this time.reche ck level q 6 monthsClin ically stable/asy mptomatic. Primary ma lignant neoplasm of female breast [id number] C50.819 Being txed palliative ly in general, referral to surgeon was mentioned, but remains full code.recei daniele injections for her breast CA.see HPI for detailsDis cuss code status with HCP when able.F/U with oncology as planned [facility]. Chronic anemia 607857581 D50.8 contContin ue B 12 1000 mcg IM monthlyMon itor labs Mixed anxi ety and depressive disorder [id number] F41.8 As above Chronic ki dney disease stage 4 [id number] N18.4 Continues at baseline.C ontavoid nephrotoxi c meds as able.Monit or labs.Renal consult prn. Cobalamin deficiency 190 446911 E53.8 ContinueB1 2 1000 mcg monthlylab s prn and yearly [id number] Michelle Nino NP [address] [place] [address] 08/09/2024 13:58:10 08/15/2024 08:25:14 Primary malignant neoplasm of female breast [id number] C50.819 Being txed palliative ly in general, referral to surgeon was mentioned, but remains full code.margarita daniele injections for her breast CA.see HPI for detailsDis cuss code status with HCP when able.F/U with oncology as planned [facility], see hpi for notes.plan to get scan at in person appt per onc note and readdress plancmp cbc and tsh on tuesday 08/15 Vascular dementia 212202 004 F01.B3 Remains at baselineCo ntinuetraz adone 25 mg BIDContinu e supportive care, expect decline.HC P invokedMon itor mood and behaviors. Psych follows with no recent changes. Hypothyroidism 80099328 E03.8 Has known goiter to neck.Prior levels variable and trended.TS H 02/2022 = 3.28TSH 12/2022 = 76.46 Levothyrox ine dose increased from 88 mcg to 100 mcg dailyTSH 02/2023 = 5.39TSH 09/27/23 = 122.54, FT4 0.53 dose increased to 125 mcg dailyTSH 10/25/23= 30. 479/01/04 is 70.87 and free t4 is 0.74. increase to 150 mcg01/18/24 tsh 0.17, free 74 1.37reques t med be given at 0800 as she is more compliant at this time.reche ck level q 6 monthsClin ically stable/asy mptomatic. cmp cbc and tsh on tuesday 08/15 Chronic anemia 047262972 D50.8 contContin ue B 12 1000 mcg IM monthlyMon itor labs Mixed anxi ety and depressive disorder 480498651 F41.8 As above Chronic ki dney disease stage 4 044547222 N18.4 Continues at baseline.C ontavoid nephrotoxi c meds as able.Monit or labs.Renal consult prn.cmp cbc and tsh on tuesday 08/15 Cobalamin deficiency 190 547133 E53.8 ContinueB1 2 1000 mcg monthlylab s prn and yearly [id number] Michelle Nino NP [facility] [address] [address] 08/27/2024 13:21:19 09/05/2024 20:21:47 Primary malignant neoplasm of female breast [id number] C50.819 Being txed palliative ly in general, referral to surgeon was mentioned, but remains full code.margarita dainele injections for her breast CA.see HPI for detailsDis cuss code status with HCP when able.F/U with oncology as planned [facility], see hpi for notes.plan to get scan at in person appt per onc note and readdress plan Vascular dementia 513718 004 F01.B3 Remains at baseline, with increased wandering and exit seeking latelyCont inuetrazad one 25 mg BIDContinu e supportive care, expect decline.HC P invokedMon itor mood and behaviors. Psych follows with no recent changes, will see todaywill get urinalysis with c & s to rule out infectionp t has labs cbc and bmp ordered but refuses [id number] Michelle Nino NP [facility] [address] [address] 09/03/2024 11:48:32 09/06/2024 10:25:22 Vascular dementia 389718754 F01.B3 Remains at baseline, with increased wandering and exit seeking lately, with UTIContinu etrazadone 25 mg BIDContinu e supportive care, expect decline.HC P invokedMon itor mood and behaviors. Psych follows with no recent changespt has labs cbc and bmp ordered but refuses Acute urin margarito tract infection 102097048 N39.0 [id number] see hpiA urinalysis was sent and returned with UTI on 08/28 noted to Klebsiella on culture 08/31 sensitive to cipro. 09/03 start cipro 250mg po bid x 3 daysno probiotic neededmoni tor for behaviors/ sequelae [id number] Michelle Nino NP [facility] [address] [address] 10/05/2024 10:50:15 10/09/2024 10:56:04 Vascular dementia [id number] F01.B3 Remains at baseline, with increased wandering and exit seeking lately, with UTIContinu etrazadone 37.5mg BID and 12.5 mg po prn anxietyCon tinue supportive care, expect decline.HC P invokedMon itor mood and behaviors. Psych follows with no recent changespt has labs cbc and bmp ordered but refuses Acute urin margarito tract infection 817163505 N39.0 [id number] resolvedA urinalysis was sent and returned with UTI on 08/28 noted to Klebsiella on culture 08/31 sensitive to cipro.09/03 cipro 250mg po bid x 3 days and completed course Primary ma lignant neoplasm of female breast 40715471 C50.819 Being txed palliative ly in general, referral to surgeon was mentioned, but remains full code.see hpireceive d injections for her breast CA, doesn't seem to be on these at this timesee HPI for detailsDis cuss code status with HCP when able.F/U with oncology as planned [facility], see hpi for notes.plan to get person appt per onc note and readdress plan Hypothyroidism 24291219 E03.8 Has known goiter to neck.Prior levels variable and trended.TS H 02/2022 = 3.28TSH 12/2022 = 76.46 Levothyrox ine dose increased from 88 mcg to 100 mcg dailyTSH 02/2023 = 5.39TSH 09/27/23 = 122.54, FT4 0.53 dose increased to 125 mcg dailyTSH 10/25/23= 30. 479/01/04 is 70.87 and free t4 is 0.74. increase to 150 mcg01/18/24 tsh 0.17, free 74 1.37reques t med be given at 0800 as she is more compliant at this time.reche ck level q 6 monthsClin ically stable/asy mptomatic. consider tsh at next lab draw Chronic anemia 001830259 D50.8 contContin ue B 12 1000 mcg IM [id number] stable on this at 371Monitor labs Mixed anxi ety and depressive disorder 755100933 F41.8 As above Chronic ki dney disease stage 4 598583240 N18.4 Continues at baseline.C ontavoid nephrotoxi c meds as able.Monit or labs.Renal consult prn. Cobalamin deficiency 190 718183 E53.8 ContinueB1 2 1000 mcg [id number] stable on this at 371labs prn and yearly Health Concerns Section Related Observation LastModified by Organization Detai ls LastModified Time None Recorded Concern Status LastModified by Organization Details LastModified Time None Recorded Advance Directives Directive Y: Payers Insurance Date Sequence Insurance Name Policy Number Policy Moss Covered Member ID Moss Member ID Guarantor Name 10/05/2024 2 [employer] (MEDICARE SUPPLEMENT) Maria A Bob [id number] Maria A Bob 02/28/2024 1 [place] [employer] Maria A I Bob [id number] Maria A Bob 02/28/2024 2 [employer] (MEDICARE SUPPLEMENT) Maria A Bob Maria A Bob 10/05/2024 1 [place] [employer] Maria A I Bob [id number] Maria A Bob Notes Date Note Type Note Provider Name and Address Organization Details Recorded Time 06/21/2024 text/html Pt is an 84 yo f, [facility] resident, seen for a routine rounding visit. 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) with metastasis to soft tissue (anterior mediastinum,) pleura, and bone status post modified left radical mastectomy followed by chemo/radiation in 1998 at [facility], palliative radiation to the right hip and femur 2019, currently on denosumab every 3 months and anastrozole monotherapy since 2019; Surgical hypothyroidism secondary to thyroidectomy 2011 for Racquel thyroiditis/toxic multinodular goiter; CKD IV with hx VIVIAN; Vit D def; Folate def; Borderline B12 def; Transudative bilateral pleural effusions s/p thoracentesis 02/2022; Urinary incontinence; HTN; Hx R femur fx (angulated subtrochanteric) secondary to mechanical fall vs pathologic causing fall s/p ORIF 2019; Vascular dementia with depression, hallucinations, paranoid delusions, and sleep disturbance; HFrEF (30-35% on echo 02/2022); Pulmonary HTN; Fungal dermatitis; Fecal incontinence; Falls; Hx tobacco use d/o; Recent flea infestation; Hx thrombocytopenia; Hx transaminitis; Cardiomyopathy; Anemia; Dyslipidemia; Hx urosepsis 01/2022; LLE edema; Adult FTT; Protein-calorie malnutrition; QT prolongation; Uterine fibroid; Hypercalcemia from mets requiring IV Zometa; Lytic osteoblastic metastatic disease L femur; Chronic bilateral basal ganglia lacunar infarcts; Right caudate lacunar infarct; Chronic right cerebellar lacunar infarct She continues to be followed by the [facility] for her metastatic breast CA and receives injections. She has been following up with her son lately. Currently plan Per last onc note: she has metastatic adenocarcinoma of the breast with metastasis to the soft tissue, anterior mediastinum, pleura bone currently on treatment with Faslodex injections as well as denosumab. Overall she is tolerating Faslodex injections without any significant side effects. She has had no issues with nausea hot flashes, no evidence of infection. No concerning findings on breast exam today. No new pain in the back or ribs. We did review her most recent CT imaging which reported mostly stable findings. She did report increased size of the uterine mass which may be a fibroid but this is uncertain. (Reproductive organs: Markedly enlarged heterogeneous uterus measuring 20 x 16 x 15 cm with calcified uterine fibroids and cystic changes) We did discuss a referral to see [facility] surgeon to see if there is any intervention or treatment that could be done. She does have distended abdomen without pain or tenderness. Today she and her son are interested in this referral. I did speak with Dr. Marrero who is covering for Dr. Cohen regarding this and she is in agreement. Most recent tumor marker ca 27.29 has risen to 90.8, previously 60. CA 15.3 was 53.2.Plan to continue treatment with Faslodex monthly. Maria A does have a follow-up with Dr. Cohen in 1 month. On exam, Maria A denies any complaints or concerns. She mentions how she adopted 7 boys as she was unable to have children herself. She is walking up and down the halls. vitals stable. She denies any distress, pain or concerns. No concerns from nursing. Overall, Weight stable recently at 133 lbs, similar to last month. Michelle Nino NP [address] [facility], [address], [place], [address], [facility] - [employer] 06/21/2024 12:53:47 08/09/2024 text/html Pt is an 84 yo f, [facility] resident, seen for a routine rounding visit. 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) with metastasis to soft tissue (anterior mediastinum,) pleura, and bone status post modified left radical mastectomy followed by chemo/radiation in 1998 at [facility], palliative radiation to the right hip and femur 2019, currently on denosumab every 3 months and anastrozole monotherapy since 2019; Surgical hypothyroidism secondary to thyroidectomy 2011 for Racquel thyroiditis/toxic multinodular goiter; CKD IV with hx VIVIAN; Vit D def; Folate def; Borderline B12 def; Transudative bilateral pleural effusions s/p thoracentesis 02/2022; Urinary incontinence; HTN; Hx R femur fx (angulated subtrochanteric) secondary to mechanical fall vs pathologic causing fall s/p ORIF 2019; Vascular dementia with depression, hallucinations, paranoid delusions, and sleep disturbance; HFrEF (30-35% on echo 02/2022); Pulmonary HTN; Fungal dermatitis; Fecal incontinence; Falls; Hx tobacco use d/o; Recent flea infestation; Hx thrombocytopenia; Hx transaminitis; Cardiomyopathy; Anemia; Dyslipidemia; Hx urosepsis 01/2022; LLE edema; Adult FTT; Protein-calorie malnutrition; QT prolongation; Uterine fibroid; Hypercalcemia from mets requiring IV Zometa; Lytic osteoblastic metastatic disease L femur; Chronic bilateral basal ganglia lacunar infarcts; Right caudate lacunar infarct; Chronic right cerebellar lacunar infarct Maria A has been at baseline lately. No new concerns from staff or pt. On exam, Maria A is walking the halls in her frog print pj's in NAD. She denies any difficulty eating, drinking, nausea, today. She reports she is moving her bowels. Her abd is distended, but soft. She remains pleasantly confused and often thinks she is leaving and packs her things on a regular basis. She continues to be followed by the [facility] for her metastatic breast CA and receives injections. Details below from last 2 visits. Overall, Weight stable recently at 133 lbs, similar to last month. Per last note on 07/18/24 from oncology: Telephone appointment could not be performed to entirety as the family member (son) was not present at patient's bedside. We discussed the imaging results and uterine findings. Family met with [facility] team with the plan on continued surveillance. We will continue treatment with fulvestrant and change to CDK 4 6 inhibitor if/when there is progression. We discussed that the next visit should be in person after imaging scans. Per prior onc note: she has metastatic adenocarcinoma of the breast with metastasis to the soft tissue, anterior mediastinum, pleura bone currently on treatment with Faslodex injections as well as denosumab. Overall she is tolerating Faslodex injections without any significant side effects. She has had no issues with nausea hot flashes, no evidence of infection. No concerning findings on breast exam today. No new pain in the back or ribs. We did review her most recent CT imaging which reported mostly stable findings. She did report increased size of the uterine mass which may be a fibroid but this is uncertain. (Reproductive organs: Markedly enlarged heterogeneous uterus measuring 20 x 16 x 15 cm with calcified uterine fibroids and cystic changes) We did discuss a referral to see [facility] surgeon to see if there is any intervention or treatment that could be done. She does have distended abdomen without pain or tenderness. Today she and her son are interested in this referral. I did speak with Dr. Marrero who is covering for Dr. Cohen regarding this and she is in agreement. Most recent tumor marker ca 27.29 has risen to 90.8, previously 60. CA 15.3 was 53.2. Michelle Nino NP [address] [facility], [address], [place], [address], [facility] [employer] [facility] 08/09/2024 14:19:44 08/27/2024 text/html Pt is an 84 yo f, [facility] resident, seen for an acute visit. 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) with metastasis to soft tissue (anterior mediastinum,) pleura, and bone status post modified left radical mastectomy followed by chemo/radiation in 1998 at [facility], palliative radiation to the right hip and femur 2019, currently on denosumab every 3 months and anastrozole monotherapy since 2019; Surgical hypothyroidism secondary to thyroidectomy 2011 for Racquel thyroiditis/toxic multinodular goiter; CKD IV with hx VIVIAN; Vit D def; Folate def; Borderline B12 def; Transudative bilateral pleural effusions s/p thoracentesis 02/2022; Urinary incontinence; HTN; Hx R femur fx (angulated subtrochanteric) secondary to mechanical fall vs pathologic causing fall s/p ORIF 2019; Vascular dementia with depression, hallucinations, paranoid delusions, and sleep disturbance; HFrEF (30-35% on echo 02/2022); Pulmonary HTN; Fungal dermatitis; Fecal incontinence; Falls; Hx tobacco use d/o; Recent flea infestation; Hx thrombocytopenia; Hx transaminitis; Cardiomyopathy; Anemia; Dyslipidemia; Hx urosepsis 01/2022; LLE edema; Adult FTT; Protein-calorie malnutrition; QT prolongation; Uterine fibroid; Hypercalcemia from mets requiring IV Zometa; Lytic osteoblastic metastatic disease L femur; Chronic bilateral basal ganglia lacunar infarcts; Right caudate lacunar infarct; Chronic right cerebellar lacunar infarct Pt is seen for exit seeking behaviors increasing over weekend and found by nursing in stairwell attempting to leave. She was able to be redirected and safe. On exam, Maria A states she is just fine and denies any concerns. She states she needs to go home and take care of the kids . She remains confused thinking she is much younger than her age of 84 years. A 08/15 lab was ordered but not done. She has a history of metastatic breast cancer undergoing fu appt for possible reoccurance and waiting on treatment plan. She refused to go to last appt with son and was rescheduled. Michelle Nino, JASSON [address] [facility], [address], [place], [address], [facility] 08/27/2024 17:45:52 09/03/2024 text/html Pt is an 84 yo f, [facility] resident, seen for an acute visit for behaviors. 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) with metastasis to soft tissue (anterior mediastinum,) pleura, and bone status post modified left radical mastectomy followed by chemo/radiation in 1998 at [facility], palliative radiation to the right hip and femur 2019, currently on denosumab every 3 months and anastrozole monotherapy since 2019; Surgical hypothyroidism secondary to thyroidectomy 2011 for Racquel thyroiditis/toxic multinodular goiter; CKD IV with hx VIVIAN; Vit D def; Folate def; Borderline B12 def; Transudative bilateral pleural effusions s/p thoracentesis 02/2022; Urinary incontinence; HTN; Hx R femur fx (angulated subtrochanteric) secondary to mechanical fall vs pathologic causing fall s/p ORIF 2019; Vascular dementia with depression, hallucinations, paranoid delusions, and sleep disturbance; HFrEF (30-35% on echo 02/2022); Pulmonary HTN; Fungal dermatitis; Fecal incontinence; Falls; Hx tobacco use d/o; Recent flea infestation; Hx thrombocytopenia; Hx transaminitis; Cardiomyopathy; Anemia; Dyslipidemia; Hx urosepsis 01/2022; LLE edema; Adult FTT; Protein-calorie malnutrition; QT prolongation; Uterine fibroid; Hypercalcemia from mets requiring IV Zometa; Lytic osteoblastic metastatic disease L femur; Chronic bilateral basal ganglia lacunar infarcts; Right caudate lacunar infarct; Chronic right cerebellar lacunar infarct Recently, Maria A has increased exit seeking behaviors and agitation with roommates more than typically noted. A urinalysis was sent and returned with UTI on 08/28 noted to Klebsiella on culture 08/31 sensitive to cipro. On exam, she is resting in bed in NAD. she is pleasant and denies any vomiting, nausea, back pain, dysuria, frequency, or urgency. She is agreeable to abx. Michelle Nino NP [address] [facility], [address], [place], [address], [facility] [employer] 09/03/2024 16:08:41 10/05/2024 text/html Pt is an 84 yo f, [facility] resident, seen for a routine rounding visit. 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) with metastasis to soft tissue (anterior mediastinum,) pleura, and bone status post modified left radical mastectomy followed by chemo/radiation in 1998 at [facility], palliative radiation to the right hip and femur 2019, currently on denosumab every 3 months and anastrozole monotherapy since 2019; Surgical hypothyroidism secondary to thyroidectomy 2011 for Racquel thyroiditis/toxic multinodular goiter; CKD IV with hx VIVIAN; Vit D def; Folate def; Borderline B12 def; Transudative bilateral pleural effusions s/p thoracentesis 02/2022; Urinary incontinence; HTN; Hx R femur fx (angulated subtrochanteric) secondary to mechanical fall vs pathologic causing fall s/p ORIF 2019; Vascular dementia with depression, hallucinations, paranoid delusions, and sleep disturbance; HFrEF (30-35% on echo 02/2022); Pulmonary HTN; Fungal dermatitis; Fecal incontinence; Falls; Hx tobacco use d/o; Recent flea infestation; Hx thrombocytopenia; Hx transaminitis; Cardiomyopathy; Anemia; Dyslipidemia; Hx urosepsis 01/2022; LLE edema; Adult FTT; Protein-calorie malnutrition; QT prolongation; Uterine fibroid; Hypercalcemia from mets requiring IV Zometa; Lytic osteoblastic metastatic disease L femur; Chronic bilateral basal ganglia lacunar infarcts; Right caudate lacunar infarct; Chronic right cerebellar lacunar infarct looked up [facility] md notes for oncology plan for metastatic breast cancer:last encounter states: 07/06/24 Telephone appointment could not be performed to entirety as the family member (son) was not present at patient's bedside. We discussed the imaging results and uterine findings. Family met with [facility] team with the plan on continued surveillance. We will continue treatment with fulvestrant and change to CDK 4 6 inhibitor if/when there is progression. We discussed that the next visit should be in person after imaging scans. Per didier 2 appt were rescheduled or canceled recently. Maria A has increased exit seeking behaviors and agitation with roommates more than typically noted and now improved to baseline lately. A urinalysis was sent and returned with UTI on 08/28 noted to Klebsiella on culture 08/31 sensitive to cipro and treated. On exam, she is resting in bed in NAD. she is pleasant alternating with a i dont want anything demeanor and denies any vomiting, nausea, pain, dysuria, frequency, or urgency. Overall, weight stable at 133 lbs. Michelle Nino NP [address] [facility], [address], [place], [address], [facility] [employer] 10/05/2024 12:47:10 OBGyn Episode No OBEpisode recorded.
--- OUTSIDE RECORDS SUMMARY | 2024-12-24 01:42 | XMS_ITS | Clinical Summary ---
Author Organization [address] Address [address] [place] [address] Phone Care Team Providers Care Director Of Early Childhood Education Name Role Phone Yusuf Fox MD Primary Care Provider [phone] Allergies No known active allergies Medications anastrozole (ARIMIDEX) 1 mg Take 1 tablet (1 mg total) by mouth 1 (one) time each day 07/26/2019 Active aspirin 81 mg EC tablet Take 1 Tab by mouth at bedtime. 07/31/2019 Active furosemide (LASIX) 20 mg tablet Take 1 tablet (20 mg total) by mouth 1 (one) time each day. 01/22/2021 Active levothyroxine (SYNTHROID, LEVOTHROID) 75 mcg tablet Take 1 tablet (75 mcg total) by mouth 1 (one) time each day. 02/06/2021 Active lisinopriL (PRINIVIL,ZESTR IL) 30 mg tablet Take 0.5 tablets (15 mg total) by mouth 1 (one) time each day. 12/28/2021 Active simvastatin (ZOCOR) 20 mg tablet Take 1 tablet (20 mg total) by mouth at bedtime. 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 Osteoporosis 09/28/2016 Overview (03/12/2024): Was on Fosamax Proteinuria 09/28/2016 Asymptomatic cholelithiasis 06/30/2015 Solitary pulmonary nodule 01/29/2013 Diverticulosis of colon 10/18/2011 Immunizations Immunization Administration Dates Next Due Influenza trivalent, 0.5mL, preservative free (Fluarix; FluLaval; Fluzone) ages 6mo and older (Afluria) 3 years and older 01/04/2012 Pneumococcal polysaccharide 23 valent (Pneumovax 23) 2yo and older 05/22/2019 Td Tetanus diptheria (Tdvax) 7yo and older 05/21 Surgical History Surgery Date Site/Laterality Comments THYROIDECTOMY 11/16/2011 PROCEDURE: HISTORICAL TOTAL THYROIDECTOMY; COMMENT: [facility] MASTECTOMY 1998 Left PROCEDURE: HISTORICAL MASTECTOMY; COMMENT: Dr Hannah TONSILLECTOMY PROCEDURE: HISTORICAL TONSILLECTOMY COLONOSCOPY 2011 PROCEDURE: HISTORICAL COLONOSCOPY; COMMENT: Moises, Repeat 2021. 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 DX:Bebe laura's thyroiditis History of breast cancer 06/01/2016 DX:Hist ory of breast cancer Hyperlipidemia 04/21/2018 DX:Hyperlipidemi a Hypertension 04/21/2018 DX:Hypertension Hypothyroidism (acquired) 04/21/2018 DX:Hyp othyroidism (acquired) Proteinuria 09/28/2016 DX:Proteinuria Solitary pulmonary nodule 01/29/2013 DX:Jael itary pulmonary nodule CKD (chronic kidney disease) stage 3, GFR 30-59 ml/min (CMS/HCC V24, CMS/HCC V28) 09/28/2016 DX:CKD (chronic kidney disea se) stage 3, GFR 30-59 ml/min ([facility]) Family History Medical History Relation Name Comments Other: Mesothelioma Lung Father thr oat cancer Stroke Mother emphysema, kimberly ntia Relation Name Status Comments Father Mother Social History Tobacco Use Types Packs/Day Years Used Date Smoking Tobacco: Former Cigarettes Q uit: 03/14/1998 Smokeless Tobacco: Never Comments Unknown Sex and Gender Information Value Date Recorded Sex Assigned at Not on file Legal Sex Female 1:54 AM EST Gender Identity Not on file Sexual Orientation Not on file Obstetrics History Plan of Treatment Health Maintenance Due Date Last Done Comments Zoster Vaccines (1 of 2) 1959 RSV Immunization Adult Patients (1 - 1-dose 75+ series) 2016 Pneumococcal Vaccine: 50+ Years (2 of 2 - PCV) 05/21/2020 05/22/2019 Falls Risk Assessment 02/20/2022 Medicare Annual Wellness Visit 02/20/2022 Osteoporosis Screening (Bone Density Screening) 02/20/2022 Social Influencers of Health Screening 02/20/2022 Depression Screening 03/14/2024 Cholesterol Screening (Lipid Panel) 05/21/2024 05/22/2019 COVID-19 Vaccine (3 - 2024-2 6 season) 2024 04/10/2021, 10/08/2020 Influenza Vaccine (#1) 2024 01/04/2012 Hypertension/CHF/CAD Annual BMP Blood Test 05/30/2025 05/30/2024, 05/22/2019 DTaP,Tdap,and Td Vaccines (2 - Td or Tdap) 05/21/2029 05/22/2019 HIB Vaccines Aged Out No longer eligi ble based on patient's age to complete this topic HPV Vaccines Aged Out No longer eligi ble based on patient's age to complete this topic Hepatitis A Vaccines Aged Out No long er eligible based on patient's age to complete this topic Hepatitis B Vaccines Aged Out No long er eligible based on patient's age to complete this topic IPV Vaccines Aged Out No longer eligi ble based on patient's age to complete this topic MMR Vaccines Aged Out No longer eligi ble based on patient's age to complete this topic Meningococcal ACWY Vaccine Aged Out N o longer eligible based on patient's age to complete this topic Meningococcal B Vaccine Aged Out No l onger eligible based on patient's age to complete this topic RSV Immunization Patients Under 20 months Aged Out No longer eligible b ased on patient's age to complete this topic Varicella Vaccines Aged Out No longer eligible based on patient's age to complete this topic Procedures Procedure Name Priority Date/Time Associated Diagnosis Comments COMPREHENSIVE METABOLIC PANEL Routine 05/30/2024 8:31 AM EDT Chronic kidney disease, unspecified LIPID PANEL Routine 05/22/2019 from Last 3 Months or Most Recently Relevant to Health Maintenance Results * (ABNORMAL) Comprehensive metabolic panel (05/30/2024 8:31 AM EDT) Sodium 140 133 - 145 mmol/L LAB CHEMISTRY METHOD 05/30/2024 12:27 PM [facility] Potassium 4.2 3.5 - 5.5 mmol/L LAB CHEMISTRY METHOD 05/30/2024 12:27 PM [facility] Chloride 109 96 - 110 mmol/L LAB CHEMISTRY METHOD 05/30/2024 12:27 PM [facility] CO2 20(L) 21 - 32 mmol/L LAB CHEMISTRY METHOD 05/30/2024 12:27 PM [facility] Anion Gap 11 3 - 11 LAB CHEMISTRY METHOD 05/30/2024 12:27 PM [facility] Glucose 112(H) 70 - 100 mg/dL LAB CHEMISTRY METHOD 05/30/2024 12:27 PM [facility] BUN 20 5 - 25 mg/dL LAB CHEMISTRY METHOD 05/30/2024 12:27 PM [facility] Creatinine 1.04 0.50 - 1.10 mg/dL LAB CHEMISTRY METHOD 05/30/2024 12:27 PM [facility] eGFR 54(L) >=60 mL/min/1. 73m2 LAB CHEMISTRY METHOD 05/30/2024 12:27 PM [facility] Comment:Calculation based on the Chronic Kidney Disease Epidemiology Collaboration (CKD-EPI) equation refit without adjustment for race. BUN/Creatinine Ratio 19.2 LAB CHEMISTRY METHOD 05/30/2024 12:27 PM [facility] Calcium 8.3(L) 8.5 - 10.5 mg/dL LAB CHEMISTRY METHOD 05/30/2024 12:27 PM [facility] AST (SGOT) 19 10 - 42 unit/L LAB CHEMISTRY METHOD 05/30/2024 12:27 PM [facility] ALT (SGPT) 17 10 - 60 unit/L LAB CHEMISTRY METHOD 05/30/2024 12:27 PM [facility] Alkaline Phosphatase 46 42 - 121 unit/L LAB CHEMISTRY METHOD 05/30/2024 12:27 PM [facility] Total Protein 6.5 6.0 - 8.0 g/dL LAB CHEMISTRY METHOD 05/30/2024 12:27 PM [facility] Albumin 3.4 3.2 - 5.0 g/dL LAB CHEMISTRY METHOD 05/30/2024 12:27 PM [facility] Total Bilirubin 0.6 0.0 - 1.4 mg/dL LAB CHEMISTRY METHOD 05/30/2024 12:27 PM [facility] Blood Venous blood specimen / Unknown Venipuncture / Unknown 05/30/2024 8:31 AM EDT 05/30/2024 10:46 AM EDT us Steven Mcelroy MD LAB BLOOD ORDERABLES Final Resul t [facility] [address] [place] [address], * Lipid panel (05/22/2019) LDL/HDL Ratio 2 0 - 4 Triglycerides 86 0 - 150 mg/dL Cholesterol 148 0 - 200 mg/dL HDL 72 >=40 mg/dL LDL Cholesterol 59 0 - 100 mg/dL Blood Venous blood specimen / Unknown us Historical Provider LAB BLOOD ORDERABLES Day l Result from Last 3 Months or Most Recently Relevant to Health [place] [id number] Care Teams Director Of Early Childhood Education Relationship Specialty Start Date End Date [facility]usuf Fox [facility] [address] [facility] [place] [facility] - General Internal Medicine 10/26/21
--- OUTSIDE RECORDS SUMMARY | 2024-12-24 01:42 | XMS_ITS | Clinical Summary ---
Author Organization [facility] Facility Address [address] [place] [id number] Care Team Providers Care Fuller Brush Man Name Role Phone Unavailable Primary Care Provider Unavailabl e Allergies Active Allergy Reactions Criticality Noted Date Comments Shrimp Extract Other (see comments) 07/28/2020 Medications levothyroxine (SYNTHROID, LEVOTHROID) 75 MCG tablet Take 1 tablet by mouth 1 (one) time each day Active anastrozole (ARIMIDEX) 1 MG chemo tablet Active aspirin (ST AXEL) 81 MG EC tablet Take Active Docusate Sodium (DSS) 100 MG capsule Take 1 capsule by mouth 2 (two) times a day Active furosemide (LASIX) 20 MG tablet Active Heparin Sodium, Porcine, (heparin, porcine,) 5000 UNIT/ML injection Active lisinopril (PRINIVIL,ZESTR IL) 30 MG tablet Take 0.5 tablets by mouth 1 (one) time each day Active oxyCODONE-aceta minophen (PERCOCET) 5-325 MG per tablet as needed Active simvastatin (ZOCOR) 20 MG tablet Take 1 tablet by mouth every night Active Active Problems Problem Noted Date Diagnosed Date Chronic kidney disease, stage 4 (severe) 021 Anemia in chronic kidney disease 07/29/2020 Vitamin D deficiency, not otherwise specified Secondary hyperparathyroidism 07/29/2020 Hyperkalemia 07/29/2020 Hypertension 07/29/2020 Renal scarring 07/29/2020 Pelvic mass <Unspecified joe e; Unspecified site; Intra-abdominal and pelvic swelling, mass and lump> 07/29/2020 Cognitive disorder 07/29/2020 Malignant tumor of breast <Female> 07/29/2020 Hypercalcemia 07/28/2020 Acute nontraumatic kidney injury 07/28/2020 Resolved Problems Problem Noted Date Diagnosed Date Resolved Date Metastatic malignant neoplasm to breast 07/28/2020 07/29/2020 Overview (12/13/2023): Replacing diagnoses that were inactivated after the 12/13/23 Regulatory Import Chronic kidney disease stage 3 07/28/2020 07/29/2020 Acute nontraumatic kidney injury 07/28/2020 07/29/2020 Family History Relation Status Comments Father due to meso thelioma Social History Tobacco Use Types Packs/Day Years Used Date Smoking Tobacco: Never Smokeless Tobacco: Never Alcohol Use Standard Drinks/Week Comments No 0 (1 standard drink = 0.6 oz pur e alcohol) Comments Unknown Sex and Gender Information Value Date Recorded Sex Assigned at Not on file Legal Sex Female 5:01 PM EST Gender Identity Not on file Sexual Orientation Not on file Plan of Treatment Health Maintenance Due Date Last Done Comments Pneumococcal Vaccine: 50+ Ye ars (1 of 2 - PCV) 1959 Influenza Vaccine (#1) 2024 Hepatitis B Vaccine Aged Out No longe r eligible based on patient's age to complete this topic Insurance [facility] Medicare [facility] Medicare
--- OUTSIDE RECORDS SUMMARY | 2024-12-24 01:43 | XMS_ITS | Encounter Summary ---
Author Organization [facility] Address [address] [place] [address] Care Team Providers Care System Admin Name Role Phone Yusuf Fox MD Primary Care Provider Encounter Details Date Type Department Care Team (Late st Contact Info) Description 05/29/2024 Lab Requisition [facility] - Main Lab [address] [facility] [place] [address] Steven Mcelroy MD [address] [place] [address] [address] [facility] [address] Chronic kidney disease, unspecified Social History Tobacco Use Types Packs/Day [...] Procedure Name Priority Date/Time Associated Diagnosis Comments COMPLETE BLOOD COUNT Routine 05/30/2024 8:31 AM EDT Chronic kidney disease, unspecified COMPREHENSIVE METABOLIC PANEL Routine 05/30/2024 8:31 AM EDT Chronic kidney disease, unspecified documented in this encounter Results * (ABNORMAL) Comprehensive metabolic panel (05/30/2024 8:31 AM EDT) Sodium 140 133 - 145 mmol/L LAB CHEMISTRY METHOD 05/30/2024 12:27 PM EDT [facility] Potassium 4.2 3.5 - 5.5 mmol/L LAB CHEMISTRY METHOD 05/30/2024 12:27 PM [facility] Chloride 109 96 - 110 mmol/L LAB CHEMISTRY METHOD 05/30/2024 12:27 PM [facility] CO2 20(L) 21 - 32 mmol/L LAB CHEMISTRY METHOD 05/30/2024 12:27 PM [facility] Anion Gap 11 3 - 11 LAB CHEMISTRY METHOD 05/30/2024 12:27 PM [facility] Glucose 112(H) 70 - 100 mg/dL LAB CHEMISTRY METHOD 05/30/2024 12:27 PM [facility] BUN 20 5 - 25 mg/dL LAB CHEMISTRY METHOD 05/30/2024 12:27 PM [facility] Creatinine 1.04 0.50 - 1.10 mg/dL LAB CHEMISTRY METHOD 05/30/2024 12:27 PM [facility] eGFR 54(L) >=60 mL/min/1. 73m2 LAB CHEMISTRY METHOD 05/30/2024 12:27 PM [facility] Comment:Calculation based on the Chronic Kidney Disease Epidemiology Collaboration (CKD-EPI) equation refit without adjustment for race. BUN/Creatinine Ratio 19.2 LAB CHEMISTRY METHOD 05/30/2024 12:27 PM [facility] Calcium 8.3(L) 8.5 - 10.5 mg/dL LAB CHEMISTRY METHOD 05/30/2024 12:27 PM [facility] AST (SGOT) 19 10 - 42 unit/L LAB CHEMISTRY METHOD 05/30/2024 12:27 PM [facility] ALT (SGPT) 17 10 - 60 unit/L LAB CHEMISTRY METHOD 05/30/2024 12:27 PM [facility] Alkaline Phosphatase 46 42 - 121 unit/L LAB CHEMISTRY METHOD 05/30/2024 12:27 PM [facility] Total Protein 6.5 6.0 - 8.0 g/dL LAB CHEMISTRY METHOD 05/30/2024 12:27 PM EDT [facility] Albumin 3.4 3.2 - 5.0 g/dL LAB CHEMISTRY METHOD 05/30/2024 12:27 PM EDT [facility] Total Bilirubin 0.6 0.0 - 1.4 mg/dL LAB CHEMISTRY METHOD 05/30/2024 12:27 PM EDT [facility] Blood Venous blood specimen / Unknown Venipuncture / Unknown 05/30/2024 8:31 AM EDT 05/30/2024 10:46 AM EDT us Steven Mcelroy MD LAB BLOOD ORDERABLES Final Resul t [facility] [address] [place] [address], * (ABNORMAL) Complete blood count (05/30/2024 8:31 AM EDT) WBC 3.3(L) 4.8 - 10.8 K/mcL LAB HEMETOLOGY METHOD 05/30/2024 11:08 AM EDT [facility] RBC 3.30(L) 3.80 - 4.80 M/mcL LAB HEMETOLOGY METHOD 05/30/2024 11:08 AM EDT [facility] Hemoglobin 10.2(L) 11.5 - 16.0 g/dL LAB HEMETOLOGY METHOD 05/30/2024 11:08 AM EDT [facility] Hematocrit 32.2(L) 35.0 - 47.0 % LAB HEMETOLOGY METHOD 05/30/2024 11:08 AM EDT [facility] MCV 98.2(H) 79.0 - 98.0 FL LAB HEMETOLOGY METHOD 05/30/2024 11:08 AM EDT [facility] MCH 31.1 27.0 - 32.0 pcg LAB HEMETOLOGY METHOD 05/30/2024 11:08 AM EDT [facility] MCHC 31.7(L) 32.0 - 37.0 g/dL LAB HEMETOLOGY METHOD 05/30/2024 11:08 AM EDT [facility] RDW 13.5 11.0 - 15.0 % LAB HEMETOLOGY METHOD 05/30/2024 11:08 AM EDT [facility] Platelets 155 130 - 400 K/mcL LAB HEMETOLOGY METHOD 05/30/2024 11:08 AM EDT [facility] MPV 10.7 7.0 - 11.0 FL LAB HEMETOLOGY METHOD 05/30/2024 11:08 AM EDT [facility] NRBC 0.0 <1.0 % LAB HEMETOLOGY METHOD 05/30/2024 11:08 AM EDT [facility] NRBC Absolute 0.00 <0.10 K/mcL LAB HEMETOLOGY METHOD 05/30/2024 11:08 AM EDT [facility] Blood Venous blood specimen / Unknown Venipuncture / Unknown 05/30/2024 8:31 AM EDT 05/30/2024 10:46 AM EDT us Steven Mcelroy MD LAB BLOOD ORDERABLES Final Resul t [facility] [address] [place] [address], documented in this encounter Visit Diagnoses Diagnosis Chronic kidney disease, unspecified documented in this encounter Care Teams System Admin Relationship Specialty Start Date End Date Yusuf Fox MD [address] [place] [address] PCP - General Internal Medicine 10/26/21 documented as of this encounter
[2024-12-24 02:04] LABS: MANUAL DIFF FLAG NO
[2024-12-24 02:06] LABS: Hematocrit 35.1 % (37.0-47.0); Hemoglobin 11.5 g/dl (12.0-16.0); Imm Gran Abs Auto 0.01 X10*3/uL (0.00-0.03); Imm Gran Pct Auto 0.2 % (0.0-0.4); Lymphocytes Absolute Auto 0.6 X10*3/uL (1.2-4.9); Mean Corpuscular HGB Conc 32.8 g/dl (31.0-35.0); Mean Corpuscular Hemoglobin 31.8 pg (27.0-33.0); Mean Corpuscular Volume 97.0 fL (80.0-98.0); NRBC Abs Auto 0.000 X10*3/uL (0.0-0.012); NRBC Pct Auto 0.0 /100WBC (0.0-0.2); Platelet Count 168 X10*3/uL (160-400); Red Blood Count 3.62 X10*6/uL (4.20-5.50); White Blood Count 4.6 X10*3/uL (4.8-10.8)
[2024-12-24 02:13] LABS: INTERNATIONAL NORM RATIO 1.1 (0.9-1.1); Prothrombin Time 12.1 SEC (10.9-12.4)
[2024-12-24 02:25] LABS: Alanine Aminotransferase 7 U/L (0-31); Albumin Level 4.0 g/dL (3.5-5.0); Alkaline Phosphatase 42 U/L (39-117); Anion Gap 13 (12-20); Aspartate Amino Transferase 23 U/L (5-31); Blood Urea Nitrogen 25 mg/dL (9-16); Calcium 9.0 mg/dL (8.4-10.2); Carbon Dioxide 23 mmol/L (22-29); Chloride 107 mmol/L (96-108); Creatinine Clr Calc Pharmacy 31.1; Estimated Glomerular Filt Rate 47; Potassium 4.3 mmol/L (3.3-5.1); Sodium 139 mmol/L (135-145); Total Protein 6.9 g/dL (6.5-8.0)
[2024-12-24 03:15] LABS: COVID-19 Test Negative (Negative); IDNOW Serial# 55D5AD1C; IDNOW Serial# 58CA691E; Influenza B2 Negative (Negative)
[2024-12-24 03:16] VITALS: BP 174/66; PULSE 82; RESP 20; O2SAT 97
--- NOTE | 2024-12-24 03:22 | PC.NURSE ---
pt began t get agitated, hitting staff and threatening to kill everybody , pt medicated with Geodon 20 mg IM, IM sheet being filled out and provider signature obtained.
--- NOTE | 2024-12-24 04:39 | PC.NURSE ---
zyprexa held per provider as pt is sleeping and able to have CT scan done.
[2024-12-24] MEDS: OLANZapine 10 MG VIAL 5 MG IM (04:54)
[2024-12-24 06:05] VITALS: BP 171/66; PULSE 77; RESP 18; O2SAT 99
--- NOTE | 2024-12-24 06:56 | ED.FALL ---
HPI - Fall General Chief Complaint: Fall Stated Complaint: Fall Head Strike Time Seen by Provider: 12/24/24 02:45 Source: EMS, RN notes reviewed and old records reviewed Mode of arrival: EMS Limitations: physical limitation (Dementia, confusion) History of Present Illness ED Provider: Dr. Lizzie Nettles HPI Narrative: 84-year-old female with history of dementia presents via EMS from the halfway facility where she is currently a resident with reported unwitnessed fall. Patient reports that her ?knee gave out on her? and she hit her head on the floor. She has a large hematoma, abrasion and associated contusion in the right forehead. Patient denies any pain but is very combative. Reportedly takes baby aspirin. No other complaints at this time. Related Data Allergies Allergy/AdvReac Type Severity Reaction Status Date / Time No Known Allergies Allergy Verified 12/24/24 01:24 Review of Systems Review of Systems: Yes Unobtainable due to mental status (Demented, confused) [facility] Social History Social History Advance Directives: Yes Advance Directives on File: Yes Advance Directives Date on File: 12/24/24 Physical Exam Exam: Exam: GENERAL: Chronically ill-appearing, slightly agitated, combative. SKIN: Normal skin color for ethnicity, warm, dry, no rashes noted, right forehead abrasion. HEENT: Normocephalic, large hematoma with contusion, no bogginess to the scalp, no raccoon's eyes, no guerrero sign, no stridor, posterior oropharynx nonerythematous, EOMI. NECK: Soft, supple, full ROM, midline structures nontender, no step-offs, no deformities, no lymphadenopathy. CHEST: Heart regular rate and rhythm, no murmurs, symmetric chest rise and fall. PULMONARY: Clear to auscultation bilaterally, no labored breathing, no wheezes/rhales/ rhonchi. ABDOMINAL: Soft, nondistended, nontender, positive bowel sounds in all quadrants. : Deferred. MUSCULOSKELETAL: Normal tone, full range of motion, no deformities, no peripheral edema. NEURO: Alert and oriented to person, CN II through XII intact, no focal neurologic deficits, moves all extremities equally. PSYCHIATRIC: Flat affect, fluid speech, slightly agitated and combative. Vital Signs: Vital Signs: Last Vital Signs Temp 97.6 F 12/24/24 01:22 Pulse 54 12/24/24 14:10 Resp 18 12/24/24 14:10 BP 171/66 H 12/24/24 06:05 Pulse Ox 96 12/24/24 14:10 O2 Del Method Room Air 12/24/24 14:10 BMI result Body Mass Index 26.0 Course Reevaluation(s) Reevaluation #1: Lisa: The patient was signed out to me at change of shift. The patient is an 84-year-old woman who was sent here from her half-way, [facility], after having a fall. She hit her head as part of the fall. She is on a baby aspirin but no anticoagulation. She has a head CT this morning that showed a question of a very tiny subarachnoid hemorrhage. This was an equivocal finding. The patient was kept in the emergency room to repeat a head CT in 6 hours. On the repeat head CT there is no finding of an intracranial hemorrhage of any kind. I think this therefore exaggerates the patient of an intracranial hemorrhage. The patient was otherwise medically cleared to returned to her half-way. She will therefore be discharged. Time: 14:52 Medications Administered Discontinued Medications Generic Name Dose Route Start Last Admin Trade Name Freq PRN Reason Stop Dose Admin Acetaminophen 975 mg 12/24/24 09:47 12/24/24 11:17 Acetaminophen 325 Mg Tablet PO 12/24/24 09:48 975 mg ONCE ONE Administration Olanzapine 5 mg 12/24/24 04:01 12/24/24 04:54 Olanzapine 10 Mg Vial IM 12/24/24 04:02 5 mg STAT STA Administration Olanzapine 5 mg 12/24/24 06:55 12/24/24 07:24 Olanzapine 10 Mg Vial IM 12/24/24 06:56 Not Given STAT STA Ziprasidone 20 mg 12/24/24 02:54 12/24/24 03:00 Ziprasidone Mesylate 20 Mg Vial IM 12/24/24 02:55 20 mg ONCE ONE Administration Medical Decision Making Medical Decision Making MDM Narrative: Patient presents today with chief complaint of trauma after an unwitnessed fall at the half-way. Different diagnosis on this patient includes intracranial hemorrhage, skull fracture, neck injury including fracture or spinal cord pathology. Other diagnoses considered would include chest or abdominal trauma as well as long bone fractures. Based on my physical exam, the ordered imaging modalities are indicated. The patient specifically does not show any signs of central cord syndrome as evidenced by equal strength in the upper extremities with normal two-point discrimination. Sensation is not altered. GCS is appropriate. Patient is neurovascularly intact. There are no signs of vascular emergency. No signs of shock. No respiratory distress. Patient is rather agitated, requiring chemical restraint to facilitate workup including head CT and neck CT. Differential Diagnosis Differential Diagnoses: The differential diagnosis associated with the presentation includes (As above) Admission/Observation Consideration of admission/observation: Escalation of care including admission/observation considered Lab Data MDM Lab Attestation statement: I reviewed the patient's lab results. 12/24/24 01:58 12/24/24 01:58 Labs: Lab Results 12/24/24 12/24/24 Range/Units 01:58 02:53 WBC 4.6 L (4.8-10.8) X10*3/uL RBC 3.62 L (4.20-5.50) X10*6/uL Hgb 11.5 L (12.0-16.0) g/dl Hct 35.1 L (37.0-47.0) % MCV 97.0 (80.0-98.0) fL MCH 31.8 (27.0-33.0) pg MCHC 32.8 (31.0-35.0) g/dl RDW 12.6 (11.0-16.0) % Plt Count 168 (160-400) X10*3/uL MPV 9.6 (9.4-12.3) fL Immature Gran % (Auto) 0.2 (0.0-0.4) % Neut % (Auto) 73.9 H (45-73) % Lymph % (Auto) 13.6 L (20-40) % Lipscomb % (Auto) 9.5 (2-11) % Eos % (Auto) 2.4 (0-4) % Baso % (Auto) 0.4 (0-2) % Lymph # (Auto) 0.6 L (1.2-4.9) X10*3/uL Lipscomb # (Auto) 0.4 (0.1-1.2) X10*3/uL Eos # (Auto) 0.1 (0.0-0.4) X10*3/uL Baso # (Auto) 0.0 (0.0-0.2) X10*3/uL Abs Immat Gran (auto) 0.01 (0.00-0.03) X10*3/uL Absolute Neuts (auto) 3.4 (2.0-8.3) x10*3/uL Absolute Nucleated RBC 0.000 (0.0-0.012) X10*3/uL Nucleated RBC % (auto) 0.0 (0.0-0.2) /100WBC PT 12.1 (10.9-12.4) SEC INR 1.1 (0.9-1.1) Sodium 139 (135-145) mmol/L Potassium 4.3 (3.3-5.1) mmol/L Chloride 107 (96-108) mmol/L Carbon Dioxide 23 (22-29) mmol/L Anion Gap 13 (12-20) BUN 25 H (9-16) mg/dL Creatinine 1.11 (0.5-1.4) mg/dL Estim Creat Clear Calc 31.1 Estimated GFR 47 Random Glucose 121 H (60-115) mg/dL Calcium 9.0 (8.4-10.2) mg/dL Total Bilirubin 0.5 (0.0-1.0) mg/dL AST 23 (5-31) U/L ALT 7 (0-31) U/L Alkaline Phosphatase 42 (39-117) U/L Total Protein 6.9 (6.5-8.0) g/dL Albumin 4.0 (3.5-5.0) g/dL COVID-19 (DOMENICA) Negative (Negative) COVID-19 Clin Com See Note Influenza Type A (MENDOZA) Negative (Negative) Influenza Type B (MENDOZA) Negative (Negative) Influenza A & B Note See Note Independent Interpretation I performed an independent interpretation of an: EKG Interpretation: My independent interpretation of the ECG reveals normal sinus rhythm with rate of 65, leftward axis, LVH, right bundle branch block, no ST elevations or depressions to suggest ischemic changes, no previous for comparison. Radiology Impression Discussion of test interpretation with radiology: I have reviewed the radiologist's reading. Radiologist Impression: CT cervical spine without contrast Comparison: None provided Findings: Normal vertebral body alignment. Abnormal destructive process within the posterior elements of C7, axial 178. No acute fractures or dislocations. No acute findings on limited view of the intracranial contents. No cervical fluid collections or masses. No consolidation or effusion at the lung apices. IMPRESSION: No acute fracture or acute malalignment. Destructive somewhat expansile process within the posterior elements of C7. Correlation with any prior imaging is recommended. The appearance is somewhat nonspecific but consideration for prior or chronic osteomyelitis, chronic aneurysmal bone cyst or less likely malignancy This document has been electronically signed by: Samuel Rocha MD on 12/24/2024 08:15:14 CT head without contrast Comparison: None Findings: No evidence of acute territorial infarct. There is patchy low density in the periventricular and subcortical white matter. Diffuse volume loss is noted. No hydrocephalus. No intraparenchymal hemorrhage, mass effect, mass lesion or midline shift. Questioned tiny focus of subarachnoid hemorrhage, axial 56-59 along the right posterior frontal region. No calvarial fracture. Right frontal scalp hematoma. Paranasal sinuses and mastoid air cells are clear. Impression: Questioned tiny focus of subarachnoid hemorrhage, axial 56-59 along the right posterior frontal region. This may well be artifactual. Short interval follow-up head CT should be considered. Right frontal scalp hematoma. Otherwise chronic changes. This document has been electronically signed by: Samuel Rocha MD on 12/24/2024 08:19:48 Independent Historian Clinical information obtained from an independent historian. History obtained from or confirmed by: EMS Chronic Conditions Patient?s care impacted by: Other (Dementia) Discharge Plan Discharge Clinical Impression: Unwitnessed fall Traumatic hematoma of forehead Qualifiers: Encounter type: initial encounter Qualified Code(s): S00.83XA - Contusion of other part of head, initial encounter Right temporal frontal scalp contusions Qualifiers: Encounter type: initial encounter Qualified Code(s): S00.03XA - Contusion of scalp, initial encounter Patient Disposition: Xfer SNF Transfer Details: BACK TO [facility] Instructions: Scalp Contusion in Adults (ED) Additional Instructions: Do not try to walk without assistance today. You may have signs and symptoms of a concussion including more confusion, headaches, difficulty focusing, nausea or dizziness. Return to the ER with any new or worsening symptoms including: Worsening headaches despite Tylenol, fevers greater than 100?, passing out, any new symptom that concerns you. [facility] Steven Mcelroy MD [Primary Care Provider, Internal Medicine] Print Language: Italian
--- NOTE | 2024-12-24 07:17 | PC.NURSE ---
This RN assumed care of patient @ 0700 Patient alert to self Patient calm but fidgety CT scans complete, awaiting results Hematoma present on right front forehead, cavazos patino pain scale 3 VSS and up to date No iv access Plan of care on going
[2024-12-24 14:10] VITALS: PULSE 54; RESP 18; O2SAT 96
[2024-12-24 15:23] VITALS: BP 154/64; PULSE 54; RESP 18; TEMP 36.9; O2SAT 96
--- NOTE | 2024-12-24 15:25 | PC.NURSE ---
Call [facility] Spoke with nurse Consuelo Gave nurse to nurse report Viri Picked up patient and patient discharged
== END 2024-12-24 15:24 | disposition skilled nursing facility (03) ==
PROVIDERS: Emergency Medicine; Emergency Provider Emergency Medicine; PCP Family Medicine
DX: S00.83XA Contusion of other part of head, initial encounter (principal); F03.918 Unspecified dementia, unspecified severity, with other behavioral disturbance; W19.XXXA Unspecified fall, initial encounter; Y93.89 Activity, other specified; Y92.128 Other place in nursing home as the place of occurrence of the external cause; Y99.8 Other external cause status
CPT/HCPCS: 36415; 70450; 72125; 80053; 85025; 85610; 87502; 87635; 93005; 96372; 99285; J2359; J3486

== ENCOUNTER → 2024-12-24 01:37 | Outpatient (BNV) | payer MEDICARE, MEDICAID, SELFPAY | PROVIDERS: Emergency Provider Emergency Medicine; PCP Family Medicine; Visit Provider Internal Medicine Cardiovascular Disease | DX: I49.3 Ventricular premature depolarization (principal); I51.7 Cardiomegaly | CPT/HCPCS: 93010 ==

== ENCOUNTER → 2024-12-24 02:39 | Outpatient (BNV) | payer MEDICARE, MEDICAID, SELFPAY | PROVIDERS: Emergency Provider Emergency Medicine; PCP Family Medicine; Visit Provider Radiology Vascular & Interventional Radiology | DX: S19.9XXA Unspecified injury of neck, initial encounter (principal); S00.03XA Contusion of scalp, initial encounter; W19.XXXA Unspecified fall, initial encounter | CPT/HCPCS: 70450; 72125 ==